=== PATIENT | female | born 1995 | race Two or more races ===

== ENCOUNTER 2024-07-31 07:03 | Inpatient (IN) | payer MEDICAID ==
[2024-07-27 12:21] LABS: Urine Bacteria None Seen /hpf (None Seen)
[2024-07-27 13:14] LABS: Basophils # (auto) 0 10 ^3/uL (0-0.2); Basophils % (auto) 0.2 % (0.0-2.0); Eosinophils # (auto) 0.1 10 ^3/uL (0-0.8); Hematocrit 39.2 % (36.0-46.0); Hemoglobin 13.3 g/dL (12.2-16.2); Lymphocytes # (auto) 1.6 10 ^3/uL (0.4-5.4); Lymphocytes % (auto) 28.7 % (10.0-50.0); Mean Corpuscular Hemoglobin 29.7 pg (28.0-32.0); Mean Corpuscular Hgb Conc. 33.8 g/dL (32.0-36.0); Mean Corpuscular Volume 87.7 fL (80.0-100.0); Monocytes # (auto) 0.4 10 ^3/uL (0-1.3); Neutrophils # (auto) 3.4 10 ^3/uL (1.6-8.6); Neutrophils % (auto) 61.1 % (37.0-80.0); Nucleated Red Blood Cells % 0.1 %; Platelet Count (auto) 300 10^3/uL (140-450); Red Blood Cells 4.47 10^6/uL (4.0-5.20); White Blood Cell 5.5 10^3/uL (4.4-10.8)
[2024-07-27 13:15] LABS: Urine Blood Negative /uL (Negative); Urine Clarity Clear (Clear); Urine Color Light-Yellow (Yellow); Urine Mucus FEW (None Seen); Urine Protein, UAD Negative (Negative); Urine Specific Gravity 1.021 (1.001-1.035); Urine Urobilinogen Normal (Negative); Urine WBC 1 /hpf (0 - 5); Urine pH 5.5 (5.0-9.0)
[2024-07-27 13:27] LABS: INR 1.1 (0.9-1.15); Partial Thromboplastin Time 29.1 SEC (24.5-34.5); Prothrombin Time 11.6 sec (9.3-11.8)
[2024-07-27 13:53] LABS: Alanine Aminotransferase 21 U/L (7-40); Albumin 4.7 g/dL (3.2-4.8); Alkaline Phosphatase 57 U/L (46-116); Anion Gap 5 (5-15); BUN/Creatinine Ratio 14.1 (10.0-20.0); Blood Urea Nitrogen 13 mg/dL (9-23); Calcium 10.3 mg/dL (8.7-10.4); Carbon Dioxide 27 mmol/L (20-31); Chloride 108 mmol/L (98-107); Glucose 85 mg/dL (74-106); Potassium 4.1 mmol/L (3.5-5.1); Sodium 140 mmol/L (136-145)
[2024-07-27 13:54] LABS: Aspartate Aminotransferase 19 U/L (13-40); Total Protein 7.4 g/dL (5.7-8.2)
--- NOTE | 2024-07-27 14:12 | DVHHP2 ---
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 control: NONE Patient has a history of chronic pelvic pain. She has extremely painful menstrual cycles. She was previously diagnosed with pelvic adhesions and had a diagnostic laparoscopy in the past. She has secondary infertility, and a prior history of a pelvic infection. Pelvic US shows an 8mm endometrial cyst and an 8mm left ovarian (solid) lesion. 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[employer]) Review of Systems Constitutional: No symptom reported Ears, Nose, & Throat: No symptom reported Eyes: No symptom reported Pulmonary/Respiratory: No symptom reported Cardiovascular: No symptom reported Gastrointestinal: Abdominal Pain Genitourinary: Pain Musculoskeletal: No symptom reported Skin: No symptom reported Psychiatric: No symptom reported Endocrine: No symptom reported Hemotologic/Lymphatic: No symptom reported Physical Exam Physical Exam HEENT: NCAT Heart: Rhythm Normal Lungs: Clear Abdomen: Soft Extremities: Normal Reflexes: Normal Market Manager/Pelvic Exam: Not done Assessment and Plan Plan Assessment and Plan: 1. Chronic Pelvic Pain 2. Possible Endometriosis vs Pelvic Adhesions 3. Endometrial cyst 8mm 4. Abnormal uterine bleeding 5. Secondary Infertility Plan: The patient is consented for the following procedure: -- Pelvic exam under anesthesia, operative hysteroscopy, uterine dilation and curettage, diagnostic laparoscopy, lysis of adhesion, chromopertubation, peritoneal biopsy, fulguration of endometriosis, possible laparotomy. Informed consent: The risks, benefits, and alternatives to surgery have been thoroughly discussed with the patient. Risks of pain, scar, bleeding, injury to bowel, bladder, adjacent organs have all been discussed with patient. She understands that if endometriosis is discovered she may need subsequent therapy. No guarantee given for complete resolution of pelvic pain. Patient verbalized understanding and informed consent given Date of Service: Jul 31, 2024 Billing Provider: ADALBERTO JOHNSON DO Common Visit Codes: [id number] INP/OBS CARE (HIGH) ADALBERTO JOHNSON DO Jul 27, 2024 14:12
[~2024-07-31] VITALS: Ht 162.6 cm; Wt 77.0 kg
[2024-07-31] MEDS ORDERED: SODIUM CHLORIDE LOCK 10 ML ONE (08:09)
[2024-07-31] MEDS ORDERED: fentaNYL CITRATE 100 MCG/2 ML VL ONE (08:09)
[2024-07-31] MEDS ORDERED: LIDOCAINE 1% INJ PF 5ML AMP ONE (08:09)
[2024-07-31] MEDS ORDERED: LIDOCAINE HCL 2% TOP JELLY 5ML TOP ONE (08:09)
[2024-07-31] MEDS ORDERED: MEPERIDINE HCL (50 MG/ML) 1 ML VIAL ONE (08:09)
[2024-07-31] MEDS ORDERED: NEOSTIGMINE 1 MG/ML INJ (10mg/10ML VIAL) ONE (08:09)
[2024-07-31] MEDS ORDERED: MIDAZOLAM HCL 2MG/2ML 2ml VIAL (1mg/ml) ONE (08:09)
[2024-07-31] MEDS ORDERED: KETAMINE 50mg/ML 1ml syringe ONE (08:09)
[2024-07-31] MEDS ORDERED: PROPOFOL 10 MG/ML 20 ML IV ONE (08:10)
[2024-07-31] MEDS ORDERED: ROCURONIUM 10MG/ML 10ML VIAL IV ONE (08:10)
[2024-07-31] MEDS ORDERED: ONDANSETRON HCL 4 MG/2 ML VIAL ONE (08:10)
[2024-07-31] MEDS ORDERED: GLYCOPYRROLATE 0.2 MG/ML 1ML VIAL ONE (08:10)
[2024-07-31] MEDS ORDERED: HYDROmorphone HCL 2 MG/ML VL/or syr IV PRN ×2 (09:00→13:15)
[2024-07-31] MEDS: METHYLENE BLUE 0.5% 5MG/ML 10ml AMP IV ONE ×2 (10:06→13:21)
[2024-07-31 11:08] VITALS: PULSE 92; RESP 20; O2SAT 92
[2024-07-31] MEDS: HYDROmorphone HCL 2 MG/ML VL/or syr IV PRN (11:20)
[2024-07-31] MEDS: KETOROLAC TROMETH 30 MG/ML 1ML VIAL IV ONE (11:28)
[2024-07-31] MEDS: MORPHINE SULFATE INJ 2 MG/ml SYRG IV PRN (11:40)
[2024-07-31] MEDS: ACETAMINOPHEN IV 1000 MG/100ML (10MG/ML) IV ONE (11:45)
--- NOTE | 2024-07-31 11:47 | DVHOP ---
DATE OF SURGERY: 07/31/2024 PREOPERATIVE DIAGNOSES: * Chronic pelvic pain. * Excessive menstrual bleeding. * Suspected endometrial cyst seen on pelvic ultrasound. * History of adhesions and possible endometriosis. * Secondary infertility. FINAL DIAGNOSES: * Chronic pelvic pain. * Excessive menstrual bleeding. * Suspected endometrial cyst seen on pelvic ultrasound, not seen. * Pelvic adhesions (RLQ) and possible endometriosis (posterior cul de sac). * Secondary infertility, suspected blocked right fallopian tube and dilated left fallopian tube (patent) PROCEDURE PERFORMED: * Pelvic exam under anesthesia. * Operative hysteroscopy, uterine dilatation and curettage (D&C). * Operative laparoscopy with lysis of adhesions and chromopertubation * Peritoneal biopsy (posterior cul de sac) INDICATION FOR PROCEDURE: The patient is a 28-year-old nulliparous female. She has had secondary infertility and chronic pelvic pain. Her pain is worse in the right lower quadrant. Previously, she has had laparoscopy done by an outside physician that stated she had pelvic adhesions and possible endometriosis. The patient has not had relief of her symptoms and was consented for repeat operation. On pelvic ultrasound, an endometrial cyst was suggested. Also, the patient has a history of abnormal uterine bleeding. Therefore, she was consented for the above procedures. The risks, benefits, and alternatives to surgery were discussed with the patient and informed consent was obtained. DESCRIPTION OF FINDINGS: A normal sized uterus. No endometrial lesions or cysts seen on diagnostic hysteroscopy. Bilateral tubal ostia seen on hysteroscopy. A sharp uterine curettage performed. On laparoscopy, the patient had a less than 1 cm lesion in the posterior cul-de-sac that was biopsied and sent to pathology, suspicious for endometriosis. She did not have extensive or obvious pelvic or peritoneal endometriosis. In the right lower quadrant, the bowel and the appendix were adherent to the abdominal wall. Sharp and blunt adhesiolysis was performed to free the appendix and the bowel from the right lower quadrant. An intraoperative consultation with the general surgeon, Dr. Fuentes, was obtained who stated the appendix appeared normal and did not need to be removed. Small bowel and abdominal organs otherwise unremarkable. On chromopertubation, the right fallopian tube appeared to be blocked. There was no efflux of dye from the fimbriated end. The left fallopian tube showed normal efflux of dye. However, the left tube appeared dilated. There was no clubbing of the fallopian tubes. Fimbriated ends were within normal limits bilaterally. TECHNICAL PROCEDURE: After informed consent was obtained, the patient was taken to the operating room where she underwent smooth induction with general anesthesia. She was placed in dorsal lithotomy position in [place] stirrups. The vagina, perineum, abdomen were thoroughly prepped and the patient sterilely draped in usual fashion. A pelvic exam was then performed under anesthesia with the above-noted findings. A weighted speculum was placed in the patient's vagina. The anterior lip of the cervix was grasped with a single-tooth tenaculum. Uterine cavity sounded to 7 cm. The cervix was gently dilated with Garcia dilators to accommodate a HUMI uterine manipulator. The manipulator was placed transcervically and into the uterine cavity. The balloon was inflated. Next, a transurethral Trevizo was placed in usual fashion. All instrumentation was removed from the patient's vagina. Attention was then placed to the patient's abdomen where a 5 mm incision was made at the base of the umbilicus. The umbilical stump was elevated with clamps and the Veress needle introduced into the peritoneal cavity in usual fashion. Intraperitoneal placement was confirmed with the hanging water drop test. Carbon dioxide gas was infused to desired pneumoperitoneum. Next, a 5 mm Optiview trocar was inserted through the umbilical port. All layers of the abdomen were visualized upon entry. Intraperitoneal placement was confirmed directly with the laparoscope. Survey of the abdomen and pelvis revealed the above-noted findings. An additional 5 mm port was placed to the left of midline under direct visualization. Next, a systematic examination of the pelvic and abdominal organs was performed with the above-noted findings. I proceeded to perform a chromopertubation by instilling diluted methylene blue dye through the HUMI manipulator. The blue dye could be seen coming out of the left fallopian tube only. The distal ampullary end of the left fallopian tube appeared to be dilated. The fimbriated ends were normal on both fallopian tubes. The right fallopian tube did not show any efflux of dye despite multiple attempts to irrigate the tubes with dye. Next, we saw an implant that looked like endometriosis in the posterior cul-de-sac. Photos of the lesion were obtained. I obtained a biopsy with cold scissors and the tissue sample was retrieved and submitted to pathology. There was no bleeding at the site of biopsy. Next, there were adhesions in the right lower quadrant as described above. An intraoperative consultation with general surgeon, Dr. Fuentes, was obtained whose opinion was not to remove the appendix as it appeared normal and non-inflamed. Using the LigaSure device sharp and blunt adhesiolysis was performed to free the appendix and the small bowel from its adhesions to the right lower abdominal wall. The abdomen and pelvis were thoroughly irrigated with saline. Hemostasis was confirmed. Carbon dioxide gas was released and the trocars were removed under direct visualization. The skin incisions each were injected with 10 mL of 1% lidocaine with epinephrine and then the skin incisions closed in subcuticular fashion using 3-0 Monocryl followed by a thin layer of Dermabond. Next, attention was then placed to the vagina where a weighted speculum was introduced. The anterior lip of the cervix was grasped with a single-tooth tenaculum. The cervix was already dilated. A sharp uterine curettage was performed and the endometrial curettings was placed on Telfa pad and submitted to pathology. Next, using a 0-degree hysteroscope, I entered the uterine cavity and performed an evaluation of the endometrial cavity. Saline was used as the distention medium. Bilateral tubal ostia were successfully seen. There were no lesions, no polyps or endometrial cysts noted within the endometrial cavity. Photos of the endometrial cavity and endocervix were obtained. The hysteroscope was removed under direct visualization. No bleeding from the cervix or uterus was noted. At this point, all instrumentations were removed from the patient's vagina. The trevizo catheter was removed. The patient was taken out of lithotomy position, awakened, and taken to recovery room in stable condition. INTRAOPERATIVE COMPLICATIONS: None. ESTIMATED BLOOD LOSS: Less than 15 mL. POSTOPERATIVE CONDITION: Stable. SPECIMENS: * Endometrial curettings. * Posterior cul-de-sac peritoneal biopsy. MEDICATIONS: The patient received 2 grams of Ancef prior to skin incision. DO YAHAIRA Taylor/YUDY TID: [id number] RECEIPT: [id number] MTDD
[2024-07-31] MEDS: MEPERIDINE HCL (25 MG/ML) 1ML VIAL ONE ×2 (12:07→13:22)
[2024-07-31] MEDS: MEPERIDINE HCL (25 MG/ML) 1ML VIAL IV ONE (12:30)
[2024-07-31] MEDS: METOCLOPRAMIDE HCL 5MG/ml INJ 2ml VIAL IV ONE (12:33)
[2024-07-31 13:00] VITALS: PULSE 87; RESP 20; O2SAT 96
[2024-07-31] MEDS ORDERED: HYDROcodone-ACET 7.5/325MG TAB PO PRN (13:15)
[2024-07-31] MEDS: LIDOCAINE W/ EPINEPHRINE 1% 20ML VIAL ONE (13:21)
[2024-07-31] MEDS: ceFAZolin 2 GM/D5W100ml 100 ML IV ONE (13:21)
--- NOTE | 2024-07-31 13:23 | DVHPN2 ---
Subjective Progress Notes Subjective Post op NOTE 28y s/p Operative laparoscopy with RLQ lysis of adhesions, s/p peritoneal biopsy of lesion suspicious for endometriosis (lesion in the posterior cul de sac) s/p Chormopertubation with blocked right tube and dilated left fallopian tube (secondary infertility) s/p hysteroscopy and D&C for history of AUB Patient is in 7/10 pain in PACU despite multiple IV pain meds administered. NO N/V or fever. Pain is constant in RLQ with no radiation. s/p CT scan shows air bubbles in RLQ, normal appearing appendix, some fluid (likely secondary to acute surgery) Objective PHYSICAL EXAM Physical Exam: Gen: No acute distress now Abd: NON DISTENDED, RLQ tender, but no rebound , no masses, soft Ext: Soft, NT, neg Shree sign Vital Signs and I&O Vital Signs Date Time Temp Pulse Resp B/P (MAP) Pulse Ox O2 Delivery O2 Flow Rate FiO2 07/31/24 14:50 97.8 94 18 103/61 (75) 96 97.8 07/31/24 13:00 Nasal Cannula 2.0 07/31/24 13:00 96 Lab results Laboratory Tests Test 07/27/24 12:16 Range/Units White Blood Count 5.5 4.4-10.8 10^3/uL Red Blood Count 4.47 4.0-5.20 10^6/uL Hemoglobin 13.3 12.2-16.2 g/dL Hematocrit 39.2 36.0-46.0 % Mean Corpuscular Volume 87.7 80.0-100.0 fL Mean Corpuscular Hemoglobin 29.7 28.0-32.0 pg Mean Corpuscular Hemoglobin Concent 33.8 32.0-36.0 g/dL Red Cell Distribution Width 14.0 11.8-14.3 % Platelet Count 300 140-450 10^3/uL Mean Platelet Volume 8.0 6.9-10.8 fL Neutrophils (%) (Auto) 61.1 37.0-80.0 % Lymphocytes (%) (Auto) 28.7 10.0-50.0 % Monocytes (%) (Auto) 8.0 0.0-12.0 % Eosinophils (%) (Auto) 2.0 0.0-7.0 % Basophils (%) (Auto) 0.2 0.0-2.0 % Neutrophils # (Auto) 3.4 1.6-8.6 10 ^3/uL Lymphocytes # (Auto) 1.6 0.4-5.4 10 ^3/uL Monocytes # (Auto) 0.4 0-1.3 10 ^3/uL Eosinophils # (Auto) 0.1 0-0.8 10 ^3/uL Basophils # (Auto) 0 0-0.2 10 ^3/uL Nucleated Red Blood Cells 0.1 % Prothrombin Time 11.6 9.3-11.8 sec Prothrombin Time INR 1.10 0.9-1.15 Activated Partial Thromboplast Time 29.1 24.5-34.5 SEC Urine Color Light-yellow Yellow Urine Clarity Clear Clear Urine pH 5.5 5.0-9.0 Urine Specific [place] 1.021 1.001-1.035 Urine Protein Negative Negative Urine Ketones Negative Negative Urine Blood Negative Negative /uL Urine Nitrite Negative Negative Urine Bilirubin Negative Negative Urine Urobilinogen Normal Negative mg/dL Urine Leukocyte Esterase Negative Negative /uL Urine RBC <1 0 - 4 /hpf Urine WBC 1 0 - 5 /hpf Urine Squamous Epithelial Cells Few <5 /hpf Urine Bacteria None seen None Seen /hpf Urine Mucus Few None Seen Urine Glucose Normal Normal mg/dL Urine Test Negative Negative Sodium Level 140 136-145 mmol/L Potassium Level 4.1 3.5-5.1 mmol/L Chloride Level 108 H 98-107 mmol/L Carbon Dioxide Level 27 20-31 mmol/L Anion Gap 5 5-15 Blood Urea Nitrogen 13 9-23 mg/dL Creatinine 0.92 0.550-1.02 mg/dL Glomerular Filtration Rate Calc 88 >90 mL/min BUN/Creatinine Ratio 14.1 10.0-20.0 Serum Glucose 85 74-106 mg/dL Calcium Level 10.3 8.7-10.4 mg/dL Total Bilirubin 1.0 0.2-1.0 mg/dL Aspartate Amino Transferase (AST) 19 13-40 U/L Alanine Aminotransferase (ALT) 21 7-40 U/L Alkaline Phosphatase 57 46-116 U/L Total Protein 7.4 5.7-8.2 g/dL Albumin 4.7 3.2-4.8 g/dL Beta HCG, Quantitative 0.5 L 1.5-4.2 mIU/mL Assessment and Plan ASSESSMENT AND PLAN Assessment and Plan POD#0 s/p Laparoscopy and lysis of adhesions for pelvic pain s/p Hysteroscopy D&C and Chromopertubation Acute post op pain Plan Admit for post op observation, acute pain mgmt. Keep NPO CT Scan Abd/Pelvis w/ IV contrast performed, findings noted and discussed with General Surgeon Dr. Fuentes. Will order gastrografin study with small bowel follow through. IV pain meds PRN. Plan reviewed with patient and family. My orders: Orders - ADALBERTO JOHNSON DO Admit (07/31/24 13:09) Complete Blood Count (08/01/24 04:00) Comprehensive Metabolic Panel (08/01/24 04:00) Ondansetron Hcl (Zofran) (07/31/24 13:15) Ibuprofen Tablet (Motrin Tablet) (07/31/24 13:15) Hydrocodone-Acet 7.5/325mg Tab ([place] 7. (07/31/24 13:15) Hydromorphone Injection (Dilaudid Inject (07/31/24 13:15) Incentive Spirometry Q 1hr (07/31/24 13:12) D5w/Lactated Ringer... W/Potassium Chlor (07/31/24 13:15) Ct Ab Pel With Iv Con Only (07/31/24 13:12) Small Bowel Series-W Gastrogra (07/31/24 15:43) Plan discussed with: Patient Date of Service: Jul 31, 2024 Billing Provider: ADALBERTO JOHNSON DO Common Visit Codes: [id number] INP/OBS CARE (MOD) ADALBERTO JOHNSON DO Jul 31, 2024 13:23
[2024-07-31] MEDS ORDERED: IOHEXOL 300 MG/ML 100ML BOTTLE IJ ONE (13:51)
--- NOTE | 2024-07-31 14:46 | DVH ---
Exam: CT CT AB PEL WITH IV CON ONLY History: acute post op pain in RLQ eval appendix and fallopian tubes. COMPARISON: None Technique: Multidetector spiral CT of the abdomen and pelvis was performed from lung bases to pubic symphysis. Intravenous contrast was administered during this examination. Portal venous imaging was obtained. Axial, coronal and sagittal multiplanar reformats were performed by the technologist on a separate workstation. Radiation Dose : Abdomen/Pelvis: CTDIvol 12 mGy, DLP 618.13 mGy*cm. CONTRAST: Type of contrast: Omni 300 Contrast injected: 100 mL Findings: Lung Bases: Atelectasis in the lung bases. Liver: The liver is normal in size. No focal lesions. Normal hepatic vascular enhancement. Gallbladder and biliary Tree: Unremarkable Spleen: Unremarkable Pancreas: The pancreas is normal in appearance without focal lesions or abnormal enhancement. Adrenal Glands: Unremarkable Kidneys: No hydronephrosis. Subcentimeter left renal cyst. Bladder: Unremarkable Bowel: The stomach is grossly normal in appearance. Small bowel and colon are normal in caliber and d istribution. Appendix is nondilated and demonstrates intraluminal air. However there is free fluid i n the right lower quadrant with a few associated air bubbles.. Ascites: Small amount of free fluid in the right lower quadrant with a few associated air bubbles. Lymphadenopathy: No mesenteric, retroperitoneal or periportal lymphadenopathy. Abdominal wall and Mesentery: Unremarkable. Vasculature: The visualized abdominal aorta is normal in size and caliber. Abdominal and pelvic vess els demonstrate normal enhancement. Pelvic Organs: Unremarkable Musculoskeletal: No aggressive focal bony lesions, acute fractures or dislocation. IMPRESSION: 1. Free fluid with small air bubbles in the right lower quadrant. Appendix is identified and appears relatively normal. However given free fluid and air bubbles suspect ruptured acute appendicitis. Rec ommend clinical correlation and continued follow-up. Fluid could be aspirated for diagnostic purposes . Radiation optimization: All CT scans at this facility use at least one of these dose optimization delfina hniques: Automated exposure control mA and/or kV adjustment per patient size (includes targeted exams where dose is matched to clinical indication) or iterative reconstruction. HS:Y
[2024-07-31 14:50] VITALS: BP 103/61; PULSE 94; RESP 18; TEMP 97.8; O2SAT 96
[2024-07-31] MEDS: POTASSIUM CHLORIDE 20 MEQ in D5W/LACTATED RINGERS 1,000 ML IV SCH (15:17)
[2024-07-31] MEDS: ONDANSETRON HCL 4 MG/2 ML VIAL IV PRN (15:24)
[2024-07-31 15:36] VITALS: PULSE 94; RESP 18; O2SAT 96
[2024-07-31] MEDS ORDERED: GASTROGRAFIN 120 ML SOL ONE (15:58)
[2024-07-31 20:00] VITALS: PULSE 71; RESP 18; O2SAT 97
[2024-07-31 21:00] VITALS: BP 114/67; PULSE 71; RESP 18; TEMP 98.6; O2SAT 97
--- NOTE | 2024-07-31 21:03 | DVH ---
Procedure: XY SMALL BOWEL SERIES-W GASTROGRA Reason for study/Clinical History: rule out perforated appendix Comparison Study: None available at time of dictation. Technique: Single contrast small bowel series performed. FINDINGS/IMPRESSION: Initial encoding machine operator view of the abdomen and pelvis appears demonstrates no acute process. Contrast in the stomach and in the colon right lower quadrant. There is also contrast noted in the ki dneys, proximal ureters, and bladder. Appendix not visualized. Small-bowel follow-through does not ex clude perforated appendix.
[2024-08-01] VITALS (7 sets, daily range): BP systolic 99–121; BP diastolic 51–75; PULSE 68–98; RESP 17–20; TEMP 36.9; O2SAT 95–100
--- NOTE | 2024-08-01 01:36 | DVHPN2 ---
Subjective Progress Notes Subjective POD#1 s/p operative laparoscopy, lysis of adhesions (RLQ) S: Patient continues to have pain in RLQ, emesis x 2. NO fever Imaging studies suspicious for ruptured appendicitis Serial abdominal exams have not improved Objective PHYSICAL EXAM Physical Exam: Resting comfortably Abd: Non distended, + Rovsing's sign, tender in RLQ , no masses Ext: soft, NT Vital Signs and I&O Vital Signs Date Time Temp Pulse Resp B/P (MAP) Pulse Ox O2 Delivery O2 Flow Rate FiO2 07/31/24 15:36 94 18 96 Room Air* 0 21 07/31/24 14:50 97.8 103/61 (75) 97.8 Intake and Output 08/01/24 07:00 Intake Total 600 ml Output Total 400 ml Balance 200 ml Intake Oral 300 ml IV Total 300 ml Output Urine Total 400 ml # Voids 3 Lab results Laboratory Tests Test 07/27/24 12:16 Range/Units White Blood Count 5.5 4.4-10.8 10^3/uL Red Blood Count 4.47 4.0-5.20 10^6/uL Hemoglobin 13.3 12.2-16.2 g/dL Hematocrit 39.2 36.0-46.0 % Mean Corpuscular Volume 87.7 80.0-100.0 fL Mean Corpuscular Hemoglobin 29.7 28.0-32.0 pg Mean Corpuscular Hemoglobin Concent 33.8 32.0-36.0 g/dL Red Cell Distribution Width 14.0 11.8-14.3 % Platelet Count 300 140-450 10^3/uL Mean Platelet Volume 8.0 6.9-10.8 fL Neutrophils (%) (Auto) 61.1 37.0-80.0 % Lymphocytes (%) (Auto) 28.7 10.0-50.0 % Monocytes (%) (Auto) 8.0 0.0-12.0 % Eosinophils (%) (Auto) 2.0 0.0-7.0 % Basophils (%) (Auto) 0.2 0.0-2.0 % Neutrophils # (Auto) 3.4 1.6-8.6 10 ^3/uL Lymphocytes # (Auto) 1.6 0.4-5.4 10 ^3/uL Monocytes # (Auto) 0.4 0-1.3 10 ^3/uL Eosinophils # (Auto) 0.1 0-0.8 10 ^3/uL Basophils # (Auto) 0 0-0.2 10 ^3/uL Nucleated Red Blood Cells 0.1 % Prothrombin Time 11.6 9.3-11.8 sec Prothrombin Time INR 1.10 0.9-1.15 Activated Partial Thromboplast Time 29.1 24.5-34.5 SEC Urine Color Light-yellow Yellow Urine Clarity Clear Clear Urine pH 5.5 5.0-9.0 Urine Specific [place] 1.021 1.001-1.035 Urine Protein Negative Negative Urine Ketones Negative Negative Urine Blood Negative Negative /uL Urine Nitrite Negative Negative Urine Bilirubin Negative Negative Urine Urobilinogen Normal Negative mg/dL Urine Leukocyte Esterase Negative Negative /uL Urine RBC <1 0 - 4 /hpf Urine WBC 1 0 - 5 /hpf Urine Squamous Epithelial Cells Few <5 /hpf Urine Bacteria None seen None Seen /hpf Urine Mucus Few None Seen Urine Glucose Normal Normal mg/dL Urine Test Negative Negative Sodium Level 140 136-145 mmol/L Potassium Level 4.1 3.5-5.1 mmol/L Chloride Level 108 H 98-107 mmol/L Carbon Dioxide Level 27 20-31 mmol/L Anion Gap 5 5-15 Blood Urea Nitrogen 13 9-23 mg/dL Creatinine 0.92 0.550-1.02 mg/dL Glomerular Filtration Rate Calc 88 >90 mL/min BUN/Creatinine Ratio 14.1 10.0-20.0 Serum Glucose 85 74-106 mg/dL Calcium Level 10.3 8.7-10.4 mg/dL Total Bilirubin 1.0 0.2-1.0 mg/dL Aspartate Amino Transferase (AST) 19 13-40 U/L Alanine Aminotransferase (ALT) 21 7-40 U/L Alkaline Phosphatase 57 46-116 U/L Total Protein 7.4 5.7-8.2 g/dL Albumin 4.7 3.2-4.8 g/dL Beta HCG, Quantitative 0.5 L 1.5-4.2 mIU/mL Assessment and Plan ASSESSMENT AND PLAN Assessment and Plan POD#1 s/p laparoscopy Persistent RLQ pain, imaging suspicious for appendicitis Plan: STAT General Surgery consult obtained. I spoke with Dr. Haddad and agrees to evaluate patient IV antibiotics ordered Continue NPO My orders: Orders - ADALBERTO JOHNSON DO Admit (07/31/24 13:09) Complete Blood Count (08/01/24 04:00) Comprehensive Metabolic Panel (08/01/24 04:00) Ondansetron Hcl (Zofran) (07/31/24 13:15) Ibuprofen Tablet (Motrin Tablet) (07/31/24 13:15) Hydrocodone-Acet 7.5/325mg Tab ([place] 7. (07/31/24 13:15) Hydromorphone Injection (Dilaudid Inject (07/31/24 13:15) Incentive Spirometry Q 1hr (07/31/24 13:12) D5w/Lactated Ringer... W/Potassium Chlor (07/31/24 13:15) Ct Ab Pel With Iv Con Only (07/31/24 13:12) Small Bowel Series-W Gastrogra (07/31/24 17:44) Kub Abdomen Single View (08/01/24 05:00) Ceftriaxone 2gm/50ml D5w (Rocephin 2gm/5 (08/01/24 10:00) Metronidazole 500mg/100ml (Flagyl 500mg/ (08/01/24 06:00) * Surgical Consult (08/01/24 ) Plan discussed with: Patient, Other (RN, General Surgery Dr. Haddad) Date of Service: Aug 01, 2024 Billing Provider: ADALBERTO JOHNSON DO Common Visit Codes: [id number] INP/OBS CARE(MOD) ADALBERTO JOHNSON DO Aug 01, 2024 01:36
[2024-08-01 01:58] LABS: Basophils # (auto) 0 10 ^3/uL (0-0.2); Basophils % (auto) 0.1 % (0.0-2.0); Eosinophils # (auto) 0 10 ^3/uL (0-0.8); Hematocrit 35.5 % (36.0-46.0); Hemoglobin 12.3 g/dL (12.2-16.2); Lymphocytes # (auto) 0.7 10 ^3/uL (0.4-5.4); Lymphocytes % (auto) 8.1 % (10.0-50.0); Mean Corpuscular Hemoglobin 30.1 pg (28.0-32.0); Mean Corpuscular Hgb Conc. 34.8 g/dL (32.0-36.0); Mean Corpuscular Volume 86.7 fL (80.0-100.0); Monocytes # (auto) 0.4 10 ^3/uL (0-1.3); Monocytes % (auto) 4.4 % (0.0-12.0); Neutrophils # (auto) 7.9 10 ^3/uL (1.6-8.6); Neutrophils % (auto) 87.4 % (37.0-80.0); Platelet Count (auto) 308 10^3/uL (140-450); Red Blood Cells 4.09 10^6/uL (4.0-5.20); Red Cell Distribution Width 14.1 % (11.8-14.3)
[2024-08-01 02:14] LABS: Alanine Aminotransferase 14 U/L (7-40); Albumin 4.4 g/dL (3.2-4.8); Alkaline Phosphatase 51 U/L (46-116); Anion Gap 8 (5-15); Aspartate Aminotransferase 12 U/L (13-40); BUN/Creatinine Ratio 11.9 (10.0-20.0); Blood Urea Nitrogen 8 mg/dL (9-23); Calcium 9.8 mg/dL (8.7-10.4); Carbon Dioxide 24 mmol/L (20-31); Chloride 109 mmol/L (98-107); Glucose 109 mg/dL (74-106); Potassium 3.9 mmol/L (3.5-5.1); Sodium 141 mmol/L (136-145)
[2024-08-01 02:15] LABS: Bilirubin, Total 0.9 mg/dL (0.2-1.0); Total Protein 6.7 g/dL (5.7-8.2)
[2024-08-01] MEDS: metroNIDAZOLE 500MG/100ML 100 ML IV SCH (02:33)
[2024-08-01] MEDS ORDERED: cefTRIAXone 1GM/50ML D5W 100 ML IV ONE (03:15)
[2024-08-01] MEDS: cefTRIAXone 2GM/50ML D5W 50 ML IV ONE (04:14)
[2024-08-01] MEDS ORDERED: metroNIDAZOLE 500MG/100ML 100 ML IV SCH (06:00)
--- NOTE | 2024-08-01 06:33 | DVH ---
Exam: XY KUB ABDOMEN SINGLE VIEW Indication: F/U SMALL BOWEL Comparison: None Technique: 1 radiographic views of the abdomen. Findings: Enteric contrast in the colon. Nonobstructive bowel gas pattern noted. There is no definite evidence for pneumoperitoneum. No abnormal calcifications noted. Impression: Enteric contrast is present in the colon.
[2024-08-01] MEDS: IBUPROFEN 600 MG TAB PO PRN (09:50)
[2024-08-01] MEDS ORDERED: cefTRIAXone 2GM/50ML D5W 50 ML IV SCH ×2 (10:00→21:00)
[2024-08-01] MEDS ORDERED: MEPERIDINE HCL (25 MG/ML) 1ML VIAL IV ONE (10:00)
--- NOTE | 2024-08-01 12:06 | DVHDS2 ---
Physician Discharge Progress N Final Diagnosis: 1. Chronic pelvic pain 2. Possible endometriosis 3. Secondary infertility, possible unilateral fallopian tube blockage 4. RLQ pain, adhesions 5. Dysfunction uterine bleeding s/p D&C Operations or Procedures: Operations or Procedures 1. Hysteroscopy 2. Dilation and curettage 3. Operative laparoscopy 4. Peritoneal biopsy, suspected endometriosis lesion 5. Lysis of adhesions (RLQ bowel/appendix adhesions to abdominal wall) 6. Chromopertubation Consultations: Consultations General Surgeon Dr. Haddad - Consultation for possible appendicitis or perforated appendix post surgery, increased RLQ pain post surgery Commentary: Commentary General Surgeon and I both recommend patient stay 1 more day for observation and IV antibiotics Patient declined further hospital stay General surgeon offered laparoscopic appendectomy, patient declined Condition on Discharge: Guarded Disposition: Home Discharge Instructions: Diet: Regular Activity: Light activity Follow Up/Referral: 2 days w/ Dr. Johnson between 8-9am in OFFICE Return to ER [facility] if fever, peristent N/V or severe RLQ pain not relieved with analgesics. Medications: [place] 5mg, Zofran 4mg, Ibuprofen 800mg Follow Up Care: Discharge Statement: "Patient was advised to return to the ER or call 911 if any headaches, dizziness, shortness of breath, chest pain, abdominal pain, bleeding, fevers, or worsening of medical condition. Patient was counseled about treatment plan, medications, possible side effects, patientverbalized understanding. All questions were answered to the best of my ability. This discharge took greater then 30 minutes in planning, reviewing documentation, counseling the patient, and discussing with other team members." ADALBERTO JOHNSON DO Aug 01, 2024 12:06
[2024-08-01] MEDS ORDERED: HYDR-4902 PO (12:08)
[2024-08-01] MEDS ORDERED: IBUP-1456 PO (12:08)
[2024-08-01] MEDS ORDERED: ONDA-155 PO (12:08)
--- NOTE | 2024-08-01 13:00 | DVHINCON2 ---
Date of service: Aug 01, 2024 History of Present Illness 28-year-old female with a history of chronic right lower quadrant abdominal pain with nausea status post previous laparoscopy last year which was unremarkable now admitted secondary to another diagnostic laparoscopy with peritoneal biopsy by Dr. Harris of all the yesterday. During the operation it was noted that her appendix was adhering to the peritoneal wall and minimal dissection was performed to free this up. Dr. Pringle was also consulted intraoperatively and he stated that the appendix appeared normal and did not need to be removed. Patient denies any fevers or chills. Past Medical History Chronic right lower quadrant abdominal pain. Questionable history of IBS Past Surgical History Diagnostic laparoscopy last year and one yesterday. Family History: Patient reports no known family medical history. Family History Noncontributory Social History No alcohol, tobacco, IV drug use Allergies: Coded Allergies: Wheat (Verified Allergy, Mild, ITCHYNESS, 07/31/24) ONLY HAPPENS WHEN OVER EATS Uncoded Allergies: SESAME SEEDS (Allergy, Mild, ITCHYNESS, 07/31/24) Home Meds Active Scripts Ondansetron HCl (Ondansetron) 4 Mg Tab, 4 MG PO Q6HPRN PRN for 5 Days, #20 TAB Prov:ADALBERTO JOHNSON DO 08/01/24 Ibuprofen (Ibuprofen) 800 Mg Tab, 1 TAB PO TID, #30 TAB Prov:ADALBERTO JOHNSON DO 08/01/24 Hydrocodone-Acetaminophen (Hydrocodone Bitartrate/AC 5-325 mg) 1 Tab Tab, 1 TAB PO Q6HPRN PRN for 5 Days, #20 TAB Prov:ADALBERTO JOHNSON DO 08/01/24 Current Medications Current Medications Medications (Trade) Dose Ordered Sig/Deisy Route PRN Reason Start Time Stop Time Status Last Admin Ondansetron HCl (Zofran) 4 mg Q6HPRN PRN IV NAUSEA / VOMITING 07/31/24 13:15 08/01/24 09:49 Ibuprofen (Motrin Tablet) 600 mg Q6HP PRN PO MODERATE PAIN (4-6 PAIN SCALE) 07/31/24 13:15 08/01/24 09:50 Acetaminophen/ Hydrocodone Bitart ([place] 7.5/325MG Tab) 1 tab Q4HP PRN PO SEVERE PAIN (7-10 PAIN SCALE) 07/31/24 13:15 Hydromorphone HCl (Dilaudid Injection) 1 mg Q2HPRN PRN IV SEVERE (BREAKTHROUGH) PAIN 07/31/24 13:15 Potassium Chloride 20 meq/ Dextrose/Lactated Ringer's 1,010 ml @ 100 mls/hr Q10H6M IV 07/31/24 13:15 08/01/24 09:34 Ceftriaxone Sodium/Dextrose 50 ml @ 50 mls/hr DAILY IV 08/01/24 10:00 08/01/24 01:38 DC Metronidazole 100 ml @ 100 mls/hr Q8HR IV 08/01/24 06:00 08/01/24 01:38 DC Ceftriaxone Sodium/Dextrose 50 ml @ 50 mls/hr DAILY@2100 IV 08/01/24 21:00 Metronidazole 100 ml @ 100 mls/hr Q8H IV 08/01/24 02:00 08/01/24 09:33 Vital Signs Vital Signs Date Time Temp Pulse Resp B/P (MAP) Pulse Ox O2 Delivery O2 Flow Rate FiO2 08/01/24 09:00 97.7 72 17 112/59 (76) 95 97.7 08/01/24 08:00 Room Air* 0 21 Physical Exam GEN: Age-appropriate female in no acute distress. Alert. HEENT: Normocephalic atraumatic. Moist mucous membranes. Anicteric sclerae. CV: RRR Respiratory: CTAB ABD: Well healing incision perform her recent surgery. Abdomen is soft but there is minimal diffuse tenderness to palpation especially in the right lower quadrant with minimal guarding. Nondistended. CT of the abdomen and pelvis: There was free fluid and small air bubbles in the right lower quadrant probably from her recent surgery. Appendix is identified and appears normal. Labs/Diagnostic Data Labs Test 08/01/24 01:53 07/27/24 12:16 Range/Units White Blood Count 9.0 # 4.4-10.8 10^3/uL Red Blood Count 4.09 4.0-5.20 10^6/uL Hemoglobin 12.3 12.2-16.2 g/dL Hematocrit 35.5 L 36.0-46.0 % Mean Corpuscular Volume 86.7 80.0-100.0 fL Mean Corpuscular Hemoglobin 30.1 28.0-32.0 pg Mean Corpuscular Hemoglobin Concent 34.8 32.0-36.0 g/dL Red Cell Distribution Width 14.1 11.8-14.3 % Platelet Count 308 140-450 10^3/uL Mean Platelet Volume 7.6 6.9-10.8 fL Neutrophils (%) (Auto) 87.4 H 37.0-80.0 % Lymphocytes (%) (Auto) 8.1 L 10.0-50.0 % Monocytes (%) (Auto) 4.4 0.0-12.0 % Eosinophils (%) (Auto) 0.0 0.0-7.0 % Basophils (%) (Auto) 0.1 0.0-2.0 % Neutrophils # (Auto) 7.9 1.6-8.6 10 ^3/uL Lymphocytes # (Auto) 0.7 0.4-5.4 10 ^3/uL Monocytes # (Auto) 0.4 0-1.3 10 ^3/uL Eosinophils # (Auto) 0 0-0.8 10 ^3/uL Basophils # (Auto) 0 0-0.2 10 ^3/uL Nucleated Red Blood Cells 0.0 % Sodium Level 141 136-145 mmol/L Potassium Level 3.9 3.5-5.1 mmol/L Chloride Level 109 H 98-107 mmol/L Carbon Dioxide Level 24 20-31 mmol/L Anion Gap 8 5-15 Blood Urea Nitrogen 8 L 9-23 mg/dL Creatinine 0.67 0.550-1.02 mg/dL Glomerular Filtration Rate Calc 124 >90 mL/min BUN/Creatinine Ratio 11.9 10.0-20.0 Serum Glucose 109 H 74-106 mg/dL Calcium Level 9.8 8.7-10.4 mg/dL Total Bilirubin 0.9 0.2-1.0 mg/dL Aspartate Amino Transferase (AST) 12 L 13-40 U/L Alanine Aminotransferase (ALT) 14 7-40 U/L Alkaline Phosphatase 51 46-116 U/L Total Protein 6.7 5.7-8.2 g/dL Albumin 4.4 3.2-4.8 g/dL Prothrombin Time 11.6 9.3-11.8 sec Prothrombin Time INR 1.10 0.9-1.15 Activated Partial Thromboplast Time 29.1 24.5-34.5 SEC Urine Color Light-yellow Yellow Urine Clarity Clear Clear Urine pH 5.5 5.0-9.0 Urine Specific [place] 1.021 1.001-1.035 Urine Protein Negative Negative Urine Ketones Negative Negative Urine Blood Negative Negative /uL Urine Nitrite Negative Negative Urine Bilirubin Negative Negative Urine Urobilinogen Normal Negative mg/dL Urine Leukocyte Esterase Negative Negative /uL Urine RBC <1 0 - 4 /hpf Urine WBC 1 0 - 5 /hpf Urine Squamous Epithelial Cells Few <5 /hpf Urine Bacteria None seen None Seen /hpf Urine Mucus Few None Seen Urine Glucose Normal Normal mg/dL Urine Test Negative Negative Beta HCG, Quantitative 0.5 L 1.5-4.2 mIU/mL Assessment 1. Right lower quadrant abdominal pain of unclear etiology. Appendicitis is extremely unlikely. Plan/Recommendation 1. No acute indication for surgical intervention at this time. I did strongly recommend the patient to have an outpatient elective colonoscopy. Discussed with Dr. Johnson. Plan discussed with: Patient LAURIE DOZIER MD Aug 01, 2024 13:00
== END 2024-08-01 14:40 | disposition home or self-care (01) | DRG 517 ==
LOC: SUR 07:03 → OVERFLOW 13:09 → CENTRAL 14:36
PROVIDERS: ADMIT Obstetrics & Gynecology; ATTEND Obstetrics & Gynecology
PROC: 0UBF4ZX Excision of Cul-de-sac, Percutaneous Endoscopic Approach, Diagnostic (ICD-10-PCS; 2024-07-31)
PROC: 0UDB8ZZ Extraction of Endometrium, Via Natural or Artificial Opening Endoscopic (ICD-10-PCS; principal; 2024-07-31 09:23)
DX: N92.0 Excessive and frequent menstruation with regular cycle (principal); R71.0 Precipitous drop in hematocrit; K66.0 Peritoneal adhesions (postprocedural) (postinfection); G89.18 Other acute postprocedural pain; N85.8 Other specified noninflammatory disorders of uterus; G89.29 Other chronic pain; N73.6 Female pelvic peritoneal adhesions (postinfective); N97.9 Female infertility, unspecified
CPT/HCPCS: 36415; 74018; 74177; 74250; 80053; 81001; 81025; 84702; 85025; 85610; 85730; 86850; 86900; 86901; G0378; J1885; J2250; J2405; J2704; J3490

== ENCOUNTER 2024-11-05 10:11 | Emergency (ER) | payer MEDICAID ==
[~2024-11-05] VITALS: Ht 154.9 cm; Wt 72.8 kg
[~2024-11-05 10:11] MED LIST: HYDR-4902 PO; IBUP-1456 PO; ONDA-155 PO
[2024-11-05] MEDS: MORPHINE SULFATE 4 MG/ML SYR/VIAL IV ONE (10:58)
[2024-11-05] MEDS: SODIUM CHLORIDE 0.9% 1,000 ML IVB ONE (10:58)
[2024-11-05] MEDS: ONDANSETRON HCL 4 MG/2 ML VIAL IV ONE (10:58)
[2024-11-05 11:00] VITALS: PULSE 91; RESP 16; O2SAT 96
--- NOTE | 2024-11-05 11:09 | ED.PDOC ---
GI ASSESSMENT HPI Comments 28-year-old female who comes in with chief complaint of right lower quadrant abdominal pain. The patient states that she has been having this pain off and on for the past four months. She was diagnosed with a stone in her appendix and has been dealing with the pain. The patient states that she saw Dr. Pringle who is her surgeon and she is scheduled to have surgery sometime in November. The pain seemed to worsened last night so she came to the emergency department's for evaluation. There has been nausea, vomiting and diarrhea and she states that the pain is an 8/10. There has been no fever at this time. The patient was able to ambulate into the emergency department's without difficulty. Chief Complaint: Abdominal Pain Time Seen by MD: 10:14 Reviewed Notes: Nurses Notes, Medications, Allergies (Allergies listed above) Allergies: Coded Allergies: Wheat (Verified Allergy, Mild, ITCHYNESS, 07/31/24) ONLY HAPPENS WHEN OVER EATS Uncoded Allergies: SESAME SEEDS (Allergy, Mild, ITCHYNESS, 07/31/24) Home Meds Active Scripts Ondansetron HCl (Ondansetron) 4 Mg Tab, 4 MG PO Q6HPRN PRN for 5 Days, #20 TAB Prov:ADALBERTO JOHNSON DO 08/01/24 Ibuprofen (Ibuprofen) 800 Mg Tab, 1 TAB PO TID, #30 TAB Prov:ADALBERTO JOHNSON DO 08/01/24 Hydrocodone-Acetaminophen (Hydrocodone Bitartrate/AC 5-325 mg) 1 Tab Tab, 1 TAB PO Q6HPRN PRN for 5 Days, #20 TAB Prov:ADALBERTO JOHNSON DO 08/01/24 Information Source: Patient Mode of Arrival: Ambulatory Timing: Weeks Duration: Intermittent Prehospital treatment: None Quality: Sharp, Stabbing Vomitus: Bilious Stool: Watery Severity: Moderate Recent: None Recent Hx of: None Pain Location: RLQ Modifying Factors: Nothing Associated sign and symptoms: Nausea, Vomiting, Diarrhea, Abdominal Pain Past Medical History Past Medical History (Other): Endometriosis Surgical History (Other): Laparoscopic surgery [employer] History: No Pertinent [employer] History Family History Family History: Reviewed,noncontributory to illness Social History Smoker: Non-Smoker Alcohol: Denies ETOH Use Drugs: Denies Drug Use Lives In: Home Constitutional: reports: fever; denies: chills, diaphoresis, fatigue, malaise, sweats, weakness, others EENTM: denies: blurred vision, double vision, ear bleeding, ear discharge, ear drainage, ear pain, ear ringing, eye pain, eye redness, hearing loss, mouth pain, mouth swelling, nasal discharge, nose bleeding, nose congestion, nose pain, photophobia, tearing, throat pain, throat swelling, voice changes, others Respiratory: denies: cough, hemoptysis, orthopnea, SOB at rest, shortness of breath, SOB with excertion, stridor, wheezing, others Cardiovascular: denies: chest pain, dizzy spells, diaphoresis, Dyspnea on exertion, edema, irregular heart beat, left arm pain, lightheadedness, palpitations, PND, syncope, others Gastrointestinal: reports: abdominal pain, diarrhea, nausea, poor appetite, vomiting; denies: abdomen distended, blood streaked bowels, constipated, dysphagia, difficulty swallowing, hematemesis, melena, poor fluid intake, rectal bleeding, rectal pain, others Genitourinary: denies: abnormal vagina bleeding, burning, dyspareunia, dysuria, flank pain, frequency, hematuria, incontinence, pain, , vagina discharge, urgency, others Neurological: denies: dizziness, fainting, headache, left sided numbness, left sided weakness, numbness, paresthesia, pre-existing deficit, right sided numbness, right sided weakness, seizure, speech problems, tingling, tremors, weakness, others Musculoskeletal: denies: back pain, gout, joint pain, joint swelling, muscle pain, muscle stiffness, neck pain, others Integumetry: denies: bruises, change in color, change in hair/nails, dryness, laceration, lesions, lumps, rash, wounds, others Allergic/Immunocompromised: denies: Difficulty Healing, Frequent Infections, Hives, Itching, others Hematologic/Lymphatic: denies: anemia, blood clots, easy bleeding, easy bruising, swollen glands, others Endocrine: denies: excessive hunger, excessive sweating, excessive thirst, excessive urination, flushing, intolerance to cold, intolerance to heat, unexplained weight gain, unexplained weight loss, others Psychiatric: denies: anxiety, bipolar disorder, depression, hopeless, panic disorder, schizophrenia, sleepless, suicidal, others Physical Exam General Appearance: Mild Distress HEENT: Normal ENT Inspection, Pharynx Normal, TMs Normal Neck: Full Range of Motion, Non-Tender, Normal, Normal Inspection Respiratory: Chest Non-Tender, Lungs Clear, No Accessory Muscle Use, No Re spiratory Distress, Normal Breath Sounds Cardiovascular: No Edema, No JVD, No Murmur, No Gallop, Normal Peripheral Pulses, Regular Rate/Rhythm Breast Exam: Deferred Gastrointestinal: No Organomegaly, No Pulsatile Mass, Normal Bowel Sounds, RLQ, Soft, Tenderness Genitalia: Deferred Pelvic: Deferred Rectal: Deferred Extremities: No calf tenderness, Normal capillary refill, Normal inspection, Normal range of motion, Non-tender, No pedal edema Musculoskeletal : Apperance: Normal Neurologic: Alert, operating cost clerk II-XII nml as Tested, No Motor Deficits, Normal Affect, Normal Mood, No Sensory Deficits Cerebellar Function: Normal Reflexes: Normal Skin: Dry, Normal Color, Warm Lymphatic: No Adenopathy Was a procedure done? Was a procedure done?: No GI differential Dx Differential Diagnosis: Appendicitis, Gastritis/PUD, Gastroenteritis, Pancreatitis, UTI, Electrolyte Imbalance X-Ray, Labs, Meds, VS Vital Signs Date Time Temp Pulse Resp B/P (MAP) Pulse Ox O2 Delivery O2 Flow Rate FiO2 11/05/24 12:21 98.2 89 16 121/76 (91) 99 98.2 11/05/24 12:19 89 16 121/76 11/05/24 11:00 98.0 91 16 151/85 (107) 96 98.0 11/05/24 11:00 91 16 96 Room Air* 0 21 11/05/24 10:58 91 16 151/85 11/05/24 10:44 97.8 90 16 123/79 (94) 98 Lab Test 11/05/24 11:11 Range/Units White Blood Count 6.6 4.4-10.8 10^3/uL Red Blood Count 4.64 4.0-5.20 10^6/uL Hemoglobin 13.5 12.2-16.2 g/dL Hematocrit 39.7 36.0-46.0 % Mean Corpuscular Volume 85.7 80.0-100.0 fL Mean Corpuscular Hemoglobin 29.1 28.0-32.0 pg Mean Corpuscular Hemoglobin Concent 33.9 32.0-36.0 g/dL Red Cell Distribution Width 14.1 11.8-14.3 % Platelet Count 313 140-450 10^3/uL Mean Platelet Volume 7.7 6.9-10.8 fL Neutrophils (%) (Auto) 70.9 37.0-80.0 % Lymphocytes (%) (Auto) 21.5 10.0-50.0 % Monocytes (%) (Auto) 6.3 0.0-12.0 % Eosinophils (%) (Auto) 1.2 0.0-7.0 % Basophils (%) (Auto) 0.1 0.0-2.0 % Neutrophils # (Auto) 4.7 1.6-8.6 10 ^3/uL Lymphocytes # (Auto) 1.4 0.4-5.4 10 ^3/uL Monocytes # (Auto) 0.4 0-1.3 10 ^3/uL Eosinophils # (Auto) 0.1 0-0.8 10 ^3/uL Basophils # (Auto) 0 0-0.2 10 ^3/uL Nucleated Red Blood Cells 0.0 % Prothrombin Time 10.8 9.3-11.8 sec Prothrombin Time INR 1.02 0.9-1.15 Activated Partial Thromboplast Time 27.6 24.5-34.5 SEC Sodium Level 141 136-145 mmol/L Potassium Level 3.9 3.5-5.1 mmol/L Chloride Level 107 98-107 mmol/L Carbon Dioxide Level 24 20-31 mmol/L Anion Gap 10 5-15 Blood Urea Nitrogen 10 9-23 mg/dL Creatinine 0.81 0.550-1.02 mg/dL Glomerular Filtration Rate Calc 103 >90 mL/min BUN/Creatinine Ratio 12.3 10.0-20.0 Serum Glucose 85 74-106 mg/dL Calcium Level 10.2 8.7-10.4 mg/dL Current Medications Medications (Trade) Dose Ordered Sig/Deisy Route Start Time Stop Time Status Last Admin Ondansetron HCl (Zofran) 4 mg ONCE ONCE IV 11/05/24 10:45 11/05/24 10:46 DC 11/05/24 10:58 Sodium Chloride 1,000 ml @ 1,000 mls/hr Q1H ONCE IVB 11/05/24 10:45 11/05/24 11:44 DC 11/05/24 10:58 Morphine Sulfate 4 mg ONCE ONCE IV 11/05/24 10:45 11/05/24 10:46 DC 11/05/24 10:58 IV Hep-Lock has been established The patient was given a 1 L bolus of normal saline The patient was given morphine 4 mg IV push for the pain The patient was given Zofran 4 mg IV push for the nausea The CT scan of the abdomen and pelvis are within normal limits The patient's CBC and chemistry panel are within normal limits. At this time, the patient was being discharged we did speak with the office of Dr. Pringle and the patient will be followed up as scheduled Images Reviewed?: Images reviewed and evaluated by me Time of 1ST Reevaluation: 11:08 Reevaluation 1ST: Unchanged Patient Education/Counseling: Diagnosis, Treatment, Prognosis, Need For Follow Up Family Education/Counseling: No Family Present Departure 1 Departure Time of Disposition: 14:52 Impression: Primary Impression: Abdominal pain Qualified Codes: R10.31 - Right lower quadrant pain Disposition: 01 HOME / SELF CARE / HOMELESS Condition: Fair Discharged With: Self Critical Care Note Critical Care Time?: No Stability Stability form required: No Heart Score Heart Score: Heart Score Response (Comments) Value History N/A 0 EKG N/A 0 Age N/A 0 Risk Factors N/A 0 Troponin N/A 0 Total 0 SHONDA GONSALES MD Nov 05, 2024 11:08
[2024-11-05 11:36] LABS: Basophils # (auto) 0 10 ^3/uL (0-0.2); Basophils % (auto) 0.1 % (0.0-2.0); Eosinophils # (auto) 0.1 10 ^3/uL (0-0.8); Eosinophils % (auto) 1.2 % (0.0-7.0); Hematocrit 39.7 % (36.0-46.0); Hemoglobin 13.5 g/dL (12.2-16.2); Lymphocytes # (auto) 1.4 10 ^3/uL (0.4-5.4); Lymphocytes % (auto) 21.5 % (10.0-50.0); Mean Corpuscular Hemoglobin 29.1 pg (28.0-32.0); Mean Corpuscular Hgb Conc. 33.9 g/dL (32.0-36.0); Mean Corpuscular Volume 85.7 fL (80.0-100.0); Monocytes # (auto) 0.4 10 ^3/uL (0-1.3); Monocytes % (auto) 6.3 % (0.0-12.0); Neutrophils # (auto) 4.7 10 ^3/uL (1.6-8.6); Neutrophils % (auto) 70.9 % (37.0-80.0); Platelet Count (auto) 313 10^3/uL (140-450); Red Blood Cells 4.64 10^6/uL (4.0-5.20); Red Cell Distribution Width 14.1 % (11.8-14.3); White Blood Cell 6.6 10^3/uL (4.4-10.8)
[2024-11-05 11:51] LABS: INR 1.02 (0.9-1.15); Partial Thromboplastin Time 27.6 SEC (24.5-34.5); Prothrombin Time 10.8 sec (9.3-11.8)
[2024-11-05 12:08] LABS: Potassium 3.9 mmol/L (3.5-5.1); Sodium 141 mmol/L (136-145)
[2024-11-05 12:09] LABS: Anion Gap 10 (5-15); Calcium 10.2 mg/dL (8.7-10.4); Carbon Dioxide 24 mmol/L (20-31)
[2024-11-05 12:14] LABS: BUN/Creatinine Ratio 12.3 (10.0-20.0); Blood Urea Nitrogen 10 mg/dL (9-23); Glucose 85 mg/dL (74-106)
[2024-11-05 12:19] LABS: Chloride 107 mmol/L (98-107)
--- NOTE | 2024-11-05 14:15 | DVH ---
Exam: CT CT AB PEL WITH IV CON ONLY History: pain COMPARISON: CT CT AB PEL WITH IV CON ONLY on DOS: 07/31/24 Technique: Multidetector spiral CT of the abdomen and pelvis was performed from lung bases to pubic symphysis. Intravenous contrast was administered during this examination. Portal venous imaging was obtained. Axial, coronal and sagittal multiplanar reformats were performed by the technologist on a separate workstation. Radiation Dose : Abdomen/Pelvis: CTDIvol 8 mGy, DLP 435 mGy*cm. CONTRAST: Type of contrast: Omni 300 Contrast injected: 80 mL Findings: Lung Bases: No acute or significant lung base finding. Normal heart size. No pleural or pericardial effusion. Liver: The liver is normal in size. No focal lesions. Normal hepatic vascular enhancement. Gallbladder and biliary Tree: Unremarkable Spleen: Unremarkable Pancreas: The pancreas is normal in appearance without focal lesions or abnormal enhancement. Adrenal Glands: Unremarkable Kidneys: Subcentimeter left renal cyst. No hydronephrosis. Bladder: Unremarkable Bowel: The stomach is grossly normal in appearance. Small bowel and colon are normal in caliber and d istribution. Normal appendix is visualized in the right lower quadrant without findings of appendicit is. Ascites: Absent Lymphadenopathy: No mesenteric, retroperitoneal or periportal lymphadenopathy. Abdominal wall and Mesentery: Unremarkable. Vasculature: The visualized abdominal aorta is normal in size and caliber. Abdominal and pelvic vess els demonstrate normal enhancement. Pelvic Organs: Unremarkable Musculoskeletal: No aggressive focal bony lesions, acute fractures or dislocation. IMPRESSION: 1. No acute abdominal or pelvic finding. Radiation optimization: All CT scans at this facility use at least one of these dose optimization delfina hniques: Automated exposure control mA and/or kV adjustment per patient size (includes targeted exams where dose is matched to clinical indication) or iterative reconstruction. HS:Y
[2024-11-05] MEDS: IOHEXOL 300 MG/ML 100ML BOTTLE IJ ONE (14:36)
[2024-11-05 15:10] VITALS: BP 114/68; PULSE 83; RESP 17; TEMP 98.2; O2SAT 96
== END 2024-11-05 15:15 | disposition home or self-care (01) ==
LOC: ER 10:11
DX: R10.31 Right lower quadrant pain (principal); Z98.890 Other specified postprocedural states; Z91.018 Allergy to other foods
CPT/HCPCS: 36415; 74177; 80048; 85025; 85610; 85730; 96361; 96374; 96375; 99285; J2270; J2405; J7030; Q9967

== ENCOUNTER 2024-11-25 06:10 | Inpatient (IN) | payer MEDICAID ==
[2024-11-16 11:54] LABS: Basophils # (auto) 0 10 ^3/uL (0-0.2); Basophils % (auto) 0.2 % (0.0-2.0); Eosinophils # (auto) 0.1 10 ^3/uL (0-0.8); Eosinophils % (auto) 1.8 % (0.0-7.0); Hematocrit 41.6 % (36.0-46.0); Hemoglobin 13.4 g/dL (12.2-16.2); Lymphocytes # (auto) 1.7 10 ^3/uL (0.4-5.4); Lymphocytes % (auto) 26.9 % (10.0-50.0); Mean Corpuscular Hgb Conc. 32.3 g/dL (32.0-36.0); Mean Corpuscular Volume 86.6 fL (80.0-100.0); Monocytes # (auto) 0.4 10 ^3/uL (0-1.3); Monocytes % (auto) 7.1 % (0.0-12.0); Nucleated Red Blood Cells % 0.1 %; Platelet Count (auto) 306 10^3/uL (140-450); Red Blood Cells 4.81 10^6/uL (4.0-5.20); Red Cell Distribution Width 14.4 % (11.8-14.3); White Blood Cell 6.2 10^3/uL (4.4-10.8)
[2024-11-16 12:18] LABS: Alanine Aminotransferase 16 U/L (7-40); Alkaline Phosphatase 67 U/L (46-116); Anion Gap 9 (5-15); Calcium 9.9 mg/dL (8.7-10.4); Carbon Dioxide 26 mmol/L (20-31); Chloride 106 mmol/L (98-107); Sodium 141 mmol/L (136-145)
[2024-11-16 12:20] LABS: Glucose 89 mg/dL (74-106); INR 1.03 (0.9-1.15); Partial Thromboplastin Time 28.8 SEC (24.5-34.5); Prothrombin Time 10.9 sec (9.3-11.8)
[2024-11-16 12:21] LABS: BUN/Creatinine Ratio 14.9 (10.0-20.0); Blood Urea Nitrogen 13 mg/dL (9-23); Total Protein 7.4 g/dL (5.7-8.2)
[2024-11-16 12:22] LABS: Aspartate Aminotransferase 17 U/L (13-40)
[2024-11-16 12:23] LABS: Bilirubin, Total 0.9 mg/dL (0.2-1.0)
[2024-11-16 12:24] LABS: Albumin 4.9 g/dL (3.2-4.8)
[2024-11-16 12:40] LABS: Urine Bacteria FEW /hpf (None Seen); Urine Blood Negative /uL (Negative); Urine Clarity Turbid (Clear); Urine Color Light-Yellow (Yellow); Urine Mucus FEW (None Seen); Urine Protein, UAD Negative (Negative); Urine Specific Gravity 1.022 (1.001-1.035); Urine Squamous Epithelial Cell MOD /hpf (<5); Urine Urobilinogen Normal (Negative); Urine WBC 4 /HPF (0-5); Urine pH 5.5 (5.0-9.0)
--- NOTE | 2024-11-16 14:54 | DVHHP ---
ADMIT DATE: 11/20/2024 SUGGESTED DATE OF PROCEDURE: 11/20/2024 CHIEF COMPLAINT: Chronic pelvic pain. HISTORY OF PRESENT ILLNESS: This is a 28-year-old nulliparous female. The patient has had chronic pelvic pain for several years. She previously underwent diagnostic laparoscopy that confirmed presence of pelvic endometriosis. The patient is currently not on any hormonal therapy. She has, however, continued to have right-sided moderate to severe pelvic pain. She consulted with a general surgeon who did not feel that an appendectomy was indicated. She also consulted with a back office medical assistant who did not feel that tuboplasty procedures were indicated for treatment of her infertility due to bilaterally blocked fallopian tubes. The patient underwent hysterosalpingogram that showed bilateral fallopian tubes are blocked. On her previous laparoscopy, the left fallopian tube was dilated to chromopertubation testing, but no hydrosalpinx was present, and the right fallopian tube was completely blocked. Therefore, she is requesting a right salpingectomy. She understands the risks, benefits and alternatives to the surgery. PAST MEDICAL HISTORY: Negative. PAST SURGICAL HISTORY: Hysteroscopy, laparoscopy. MEDICATIONS: None. ALLERGIES: No known drug allergies. FAMILY HISTORY: Noncontributory. SOCIAL HISTORY: The patient is single. She denies tobacco, alcohol or illicit drug use. REVIEW OF SYSTEMS: Fourteen-point review of systems is negative as otherwise stated in the history of present illness. PHYSICAL EXAMINATION: GENERAL: Alert, appears her stated age, in no acute distress. HEENT: Normocephalic, atraumatic. EOMI. NECK: Supple, with no masses or palpable thyromegaly. LUNGS AND HEART: Lung and heart sounds are within normal limits. ABDOMEN: Soft. No masses, no rebound. She is tender in the right lower quadrant without any acute peritoneal signs. EXTREMITIES: Without cyanosis or edema. PELVIC: Deferred at the present time. ASSESSMENT: * Chronic pelvic pain localized to the right lower quadrant. 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 * Pelvic endometriosis * Infertility PLAN: The patient will be admitted for outpatient laparoscopic surgery with right total salpingectomy. We will not remove the left fallopian tube even though on hysterosalpingogram it appeared also blocked. The patient desires to pursue infertility treatment after this surgery. She understands that the appendix will not be removed at the recommendation of her general surgeon. No guarantees given that her pelvic pain will be resolved with the salpingectomy. She understands that if pelvic pain persists that she will need to seek higher level of care and seek second opinion for further treatment. Risks of the surgery including pain, scar, bleeding, infection, injury to bowel, bladder, adjacent organs all discussed with the patient. Informed consent has been obtained. DO YAHAIRA Taylor/LASHAUN TID: [id number] RECEIPT: [id number] MTDD
[2024-11-23 12:19] LABS: Basophils # (auto) 0 10 ^3/uL (0-0.2); Basophils % (auto) 0.2 % (0.0-2.0); Eosinophils # (auto) 0.1 10 ^3/uL (0-0.8); Eosinophils % (auto) 1.2 % (0.0-7.0); Hematocrit 40.3 % (36.0-46.0); Hemoglobin 13.6 g/dL (12.2-16.2); Lymphocytes # (auto) 1.8 10 ^3/uL (0.4-5.4); Lymphocytes % (auto) 29.4 % (10.0-50.0); Mean Corpuscular Hemoglobin 28.9 pg (28.0-32.0); Mean Corpuscular Hgb Conc. 33.7 g/dL (32.0-36.0); Mean Corpuscular Volume 85.8 fL (80.0-100.0); Monocytes # (auto) 0.5 10 ^3/uL (0-1.3); Monocytes % (auto) 8.2 % (0.0-12.0); Neutrophils # (auto) 3.8 10 ^3/uL (1.6-8.6); Platelet Count (auto) 305 10^3/uL (140-450); Red Cell Distribution Width 14.6 % (11.8-14.3); Urine Bacteria FEW /hpf (None Seen); Urine Blood Negative /uL (Negative); Urine Clarity Clear (Clear); Urine Color Light-Yellow (Yellow); Urine Protein, UAD Negative (Negative); Urine Specific Gravity 1.011 (1.001-1.035); Urine Squamous Epithelial Cell FEW /hpf (<5); Urine Urobilinogen Normal (Negative); Urine WBC 1 /HPF (0-5); Urine pH 6.5 (5.0-9.0); White Blood Cell 6.2 10^3/uL (4.4-10.8)
[2024-11-23 12:34] LABS: INR 1.03 (0.9-1.15); Partial Thromboplastin Time 29.8 SEC (24.5-34.5); Prothrombin Time 10.9 sec (9.3-11.8)
[2024-11-23 13:11] LABS: Alanine Aminotransferase 16 U/L (7-40); Albumin 4.9 g/dL (3.2-4.8); Alkaline Phosphatase 59 U/L (46-116); Anion Gap 7 (5-15); Aspartate Aminotransferase 18 U/L (13-40); BUN/Creatinine Ratio 8.5 (10.0-20.0); Bilirubin, Total 0.7 mg/dL (0.2-1.0); Blood Urea Nitrogen 7 mg/dL (9-23); Calcium 10.1 mg/dL (8.7-10.4); Carbon Dioxide 25 mmol/L (20-31); Chloride 106 mmol/L (98-107); Glucose 87 mg/dL (74-106); Potassium 4.8 mmol/L (3.5-5.1); Sodium 138 mmol/L (136-145); Total Protein 7.5 g/dL (5.7-8.2)
[~2024-11-25] VITALS: Ht 162.6 cm; Wt 76.3 kg
[2024-11-25] VITALS (7 sets, daily range): BP systolic 101–124; BP diastolic 54–68; PULSE 20–86; RESP 12–20; TEMP 97.6–98.5; O2SAT 92–100
[2024-11-25] MEDS ORDERED: SUGAMMADEX 200mg/2ml Vial (100MG/ML) IV ONE (06:11)
[2024-11-25] MEDS ORDERED: KETOROLAC TROMETH 30 MG/ML 1ML VIAL ONE (06:11)
[2024-11-25] MEDS ORDERED: GLYCOPYRROLATE 0.2 MG/ML 1ML VIAL ONE (06:11)
[2024-11-25] MEDS ORDERED: ROCURONIUM 10MG/ML 10ML VIAL IV ONE (06:11)
[2024-11-25] MEDS ORDERED: ONDANSETRON HCL 4 MG/2 ML VIAL ONE (06:11)
[2024-11-25] MEDS ORDERED: LIDOCAINE 2% (LOCAL ANESTH.) PF 5ml SDV ONE ×2 (06:11→07:36)
[2024-11-25] MEDS ORDERED: DexAMETHasone SOD PHOS 10MG/1ML VIAL INJ ONE (06:11)
[2024-11-25] MEDS ORDERED: PROPOFOL 10 MG/ML 20 ML IV ONE (06:11)
[2024-11-25] MEDS: BUPIVACAINE 0.5% P/F INJ 10 ML VIAL ONE (06:12)
[2024-11-25] MEDS ORDERED: fentaNYL CITRATE 100 MCG/2 ML VL ONE (06:13)
[2024-11-25] MEDS ORDERED: KETAMINE 50mg/ML 1ml syringe ONE (06:13)
[2024-11-25] MEDS ORDERED: ACETAMINOPHEN IV 1000 MG/100ML (10MG/ML) IV ONE (06:45)
--- NOTE | 2024-11-25 07:35 | DVHPN2 ---
Visit Coding OBGYN Date of Service: Nov 25, 2024 Billing Provider: ADALBERTO JOHNSON DO ASSURANCE MANAGER INSURANCE Common Visit Codes: PROCEDURE ONLY ASSURANCE MANAGER INSURANCE Procedure Codes: [id number]:W/REM ADNEXAL STRUCT (Right total salpingectomy) ADALBERTO JOHNSON DO Nov 25, 2024 07:35
[2024-11-25] MEDS ORDERED: HYDR1TAB97 PO (07:36)
[2024-11-25] MEDS ORDERED: KETOROLAC TROMETH 30 MG/ML 1ML VIAL IV PRN (08:45)
[2024-11-25] MEDS ORDERED: FLUMAZENIL 0.1 MG/ML INJ 10ML MDV IV PRN (09:15)
[2024-11-25] MEDS ORDERED: fentaNYL CITRATE 100 MCG/2 ML VL IV PRN (09:15)
[2024-11-25] MEDS ORDERED: oxyCODONE HCL 5MG TAB PO PRN (09:15)
[2024-11-25] MEDS ORDERED: NALOXONE HCL 0.4 MG/ML VIAL IV PRN (09:15)
[2024-11-25] MEDS ORDERED: hydrALAZINE HCL 20 MG/ML VL IV PRN (09:15)
[2024-11-25] MEDS ORDERED: ePHEDrine SULFATE 50 MG/ML AMP IV PRN (09:15)
--- NOTE | 2024-11-25 09:18 | DVHOP ---
DATE OF SURGERY: 11/25/2024 PREOPERATIVE DIAGNOSES: 1. Chronic pelvic pain. 2. History of endometriosis. 3. Blocked right fallopian tube. POSTOPERATIVE DIAGNOSES: 1. Chronic pelvic pain. 2. History of endometriosis. 3. Blocked right fallopian tube. 4. Chronically inflamed appendix. PROCEDURES PERFORMED: Operative laparoscopic right total salpingectomy and appendectomy. SURGEON: Papi Lucero DO GENERAL CONTRACTOR: Shalom Pierre NP HEAD BUYER TOBACCO: Umang Fuentes MD, general surgeon who removed the appendix. DESCRIPTION OF FINDINGS: 1. A normal sized uterus. The left fallopian tube and ovary appeared normal without any dilation or hydrosalpinx. The right fallopian tube and ovary similarly appeared grossly normal, however, this was known to be blocked by prior chromopertubation and hysterosalpingogram. 2. The appendix was adherent to the right pelvic sidewall. She had a chronically inflamed and indurated appendix. Intraoperative consultation was obtained with Dr. Umang Fuentes and the appendix was removed. No gross evidence of malignancy. Abdomen and pelvis otherwise normal. TECHNICAL PROCEDURE: After informed consent was obtained, the patient was taken to the operating room where she underwent smooth induction with general anesthesia. She was [facility] The vagina, perineum abdomen were thoroughly prepped and the patient sterilely draped in the usual fashion. A pelvic exam was then performed under anesthesia with the above noted findings. A weighted speculum was placed in the patient's vagina. The anterior lip of the cervix was grasped with a single tooth tenaculum. Uterine cavity sounded to 9 cm. A HUMI uterine manipulator was placed transcervically and the balloon inflated. All instrumentation was then removed from the patient's vagina. Attention was then placed to the abdomen where a 5 mm incision was made at the base of the umbilicus. Attempt to pass the Veress needle was unsuccessful, unable to confirm intraperitoneal placement. Therefore, a 5 mm Optiview trocar was used and direct entry approach was performed without any complication and entry into the peritoneal cavity was confirmed directly with the laparoscope. Carbon dioxide gas was infused and pneumoperitoneum was obtained. An 8 mm port was placed to the left of midline under direct visualization and a 12 mm port was placed to the right of midline under direct visualization. Survey of the abdomen and pelvis revealed the above noted findings. I manipulated the uterus with the HUMI manipulator. The butcher assistant grasped the distal end of the right fallopian tube. Using the LigaSure device, the fallopian tube was dissected across the mesosalpinx. There was no bleeding noted. It was taken proximally at the connection with the uterus. A total right salpingectomy was performed. The specimen was retrieved through the 8 mm port and submitted to pathology. Next, in the right lower quadrant, there were adhesions of the appendix and the appendix was adherent and indurated stuck to the right lower quadrant. An intraoperative consultation with Dr. Fuentes was obtained. The appendix was mobilized. The appendiceal artery was divided with the LigaSure device and Hemoclips were placed across the mesoappendix. The mesoappendix was divided. The appendix was grasped with a Angelito clamp at the distal end. Next, the NISREEN stapler was placed across the base of the appendix confluent with the cecum. The appendix was taken and placed in an EndoCatch bag and retrieved through the 12 mm port. The specimen was submitted. The abdomen and pelvis were thoroughly irrigated. There was no bleeding noted. We then proceeded to close the 12 mm port using #1 Vicryl using the Loyd-Ethel system. Good tissue approximation and closure of the fascial defect was obtained. Next, the carbon dioxide gas was released. The instruments were removed under direct visualization. The skin incisions were injected with 1% lidocaine. Approximately 15 mL of solution were used across 3 incisions. The skin incisions were closed with 3-0 Monocryl in subcuticular fashion and a thin layer of Dermabond was placed over the incisions. The transcervical manipulator was removed. There was no bleeding from the cervix noted. The patient was taken out of lithotomy position, awakened, and taken to recovery room in stable condition. INTRAOPERATIVE COMPLICATIONS: None. ESTIMATED BLOOD LOSS: Less than 15 mL. POSTOPERATIVE CONDITION: Stable. SPECIMENS: Right fallopian tube and appendix. MEDICATIONS: The patient received 2 g of Ancef prior to skin incision. DO JOSE MARIA Taylor TID: [id number] RECEIPT: [id number]
[2024-11-25] MEDS: ONDANSETRON HCL 4 MG/2 ML VIAL IV PRN ×2 (09:19→11:15)
[2024-11-25] MEDS: HYDROmorphone HCL 2 MG/ML VL/or syr IV PRN ×2 (09:20→11:15)
[2024-11-25] MEDS: ceFAZolin 2 GM/D5W100ml 100 ML IV ONE (09:25)
[2024-11-25] MEDS: LIDOCAINE W/ EPINEPHRINE 1% 20ML VIAL ONE (09:25)
[2024-11-25] MEDS: GABAPENTIN 300 MG CAP PO ONE (09:26)
[2024-11-25] MEDS: BUPIVACAINE HCL 0.25% P/F 10 ML VIAL ONE (09:26)
[2024-11-25] MEDS: ACETAMINOPHEN 325 MG TAB PO ONE (09:26)
[2024-11-25] MEDS: CELECOXIB 100 MG CAP PO ONE (09:27)
[2024-11-25] MEDS: ACETAMINOPHEN IV 100 ML IV ONE (09:28)
[2024-11-25] MEDS: SODIUM CHLORIDE 0.9% 1,000 ML IV SCH (10:35)
--- NOTE | 2024-11-25 13:00 | DVHINCON2 ---
DATE OF CONSULTATION: 11/25/2024 INTRAOPERATIVE CONSULTATION DATE OF OPERATION: 11/25/2024 HISTORY OF PRESENT ILLNESS: Dr. Lucero summoned me to the operating room to render an opinion regarding the patient's indurated appendix after he performed a salpingectomy for chronic pelvic pain. The appendix appeared indurated, convoluted and chronically inflamed. It was grasped with a [place] forceps placed on tension. The mesoappendix was divided with metallic Hemoclips being utilized for hemostasis. The appendix was traced all the way to the confluence with the cecum at the base of the appendix. It was secured and crossclamped and divided with an Endo-NISREEN stapler equipped with vascular marin. Following division of the appendix at its base, confluence with the cecum was removed and placed into the specimen extraction bag and removed from the peritoneal cavity. Subsequently, Dr. Lucero completed his procedure, which will be dictated separately. MD PETER Sanders/LESLIE/FREDI TID: [id number] RECEIPT: [id number]
[2024-11-25] MEDS ORDERED: IBUPROFEN 800 MG TAB PO PRN (15:00)
[2024-11-25] MEDS ORDERED: HYDROcodone-ACET 7.5/325MG TAB PO PRN (15:00)
[2024-11-25] MEDS: KETOROLAC TROMETH 30 MG/ML 1ML VIAL IV PRN (15:45)
[2024-11-25 20:11] LABS: Basophils # (auto) 0 10 ^3/uL (0-0.2); Eosinophils # (auto) 0 10 ^3/uL (0-0.8); Hematocrit 37.1 % (36.0-46.0); Hemoglobin 12.3 g/dL (12.2-16.2); Lymphocytes # (auto) 0.6 10 ^3/uL (0.4-5.4); Lymphocytes % (auto) 6.9 % (10.0-50.0); Mean Corpuscular Hemoglobin 28.6 pg (28.0-32.0); Mean Corpuscular Hgb Conc. 33.1 g/dL (32.0-36.0); Mean Corpuscular Volume 86.5 fL (80.0-100.0); Monocytes # (auto) 0.2 10 ^3/uL (0-1.3); Monocytes % (auto) 2.6 % (0.0-12.0); Neutrophils # (auto) 7.2 10 ^3/uL (1.6-8.6); Neutrophils % (auto) 90.5 % (37.0-80.0); Platelet Count (auto) 295 10^3/uL (140-450); Red Blood Cells 4.29 10^6/uL (4.0-5.20); Red Cell Distribution Width 14.4 % (11.8-14.3)
[2024-11-26 00:50] VITALS: BP 97/49; PULSE 63; RESP 20; TEMP 98.9; O2SAT 95
[2024-11-26 05:06] VITALS: BP 105/56; PULSE 63; RESP 20; TEMP 98.4; O2SAT 96
--- NOTE | 2024-11-26 06:58 | DVHDS2 ---
Physician Discharge Progress N Final Diagnosis: Pelvic pain, blocked right fallopian tube, chronic appendicitis s/p laparoscopic right total salpingectomy s/p Laparoscopic appendectomy Operations or Procedures: Operations or Procedures Laparoscopic right total salpingectomy Laparoscopic appendectomy Condition on Discharge: Stable Disposition: Home Discharge Instructions: Diet: Regular Activity: Light activity Activity comment: Pelvic rest x 2 wk Follow Up/Referral: [address] Johnson Medications: eRx [place] 5mg Follow Up Care: Discharge Statement: "Patient was advised to return to the ER or call 911 if any headaches, dizziness, shortness of breath, chest pain, abdominal pain, bleeding, fevers, or worsening of medical condition. Patient was counseled about treatment plan, medications, possible side effects, patientverbalized understanding. All questions were answered to the best of my ability. This discharge took greater then 30 minutes in planning, reviewing documentation, counseling the patient, and discussing with other team members." Visit Coding OBGYN Date of Service: Nov 26, 2024 Billing Provider: ADALBERTO JOHNSON DO WIRE FRAME DIPPER Common Visit Codes: 95782-OEG/OBS DISCH DAY <30MIN ADALBERTO JOHNSON DO Nov 26, 2024 06:58
[2024-11-26 08:14] LABS: Basophils # (auto) 0 10 ^3/uL (0-0.2); Basophils % (auto) 0.1 % (0.0-2.0); Eosinophils # (auto) 0 10 ^3/uL (0-0.8); Hematocrit 33.8 % (36.0-46.0); Hemoglobin 11.8 g/dL (12.2-16.2); Lymphocytes # (auto) 1.6 10 ^3/uL (0.4-5.4); Lymphocytes % (auto) 15.1 % (10.0-50.0); Mean Corpuscular Hgb Conc. 34.9 g/dL (32.0-36.0); Mean Corpuscular Volume 85.9 fL (80.0-100.0); Monocytes # (auto) 0.8 10 ^3/uL (0-1.3); Monocytes % (auto) 7.4 % (0.0-12.0); Neutrophils # (auto) 7.9 10 ^3/uL (1.6-8.6); Neutrophils % (auto) 77.4 % (37.0-80.0); Platelet Count (auto) 278 10^3/uL (140-450); Red Blood Cells 3.93 10^6/uL (4.0-5.20); Red Cell Distribution Width 14.4 % (11.8-14.3); White Blood Cell 10.3 10^3/uL (4.4-10.8)
[2024-11-26 09:00] VITALS: BP 110/58; PULSE 68; RESP 14; TEMP 98.6; O2SAT 96
[2024-11-26 12:19] VITALS: BP 104/55; PULSE 59; RESP 17; TEMP 98.6; O2SAT 100
== END 2024-11-26 12:54 | disposition home or self-care (01) | DRG 513 ==
LOC: SUR 06:10 → OVERFLOW 08:45 → WEST WING 09:58
PROVIDERS: ADMIT Obstetrics & Gynecology; ATTEND Obstetrics & Gynecology
PROC: 0DTJ4ZZ Resection of Appendix, Percutaneous Endoscopic Approach (ICD-10-PCS; 2024-11-25)
PROC: 0UT54ZZ Resection of Right Fallopian Tube, Percutaneous Endoscopic Approach (ICD-10-PCS; principal; 2024-11-25 07:35)
DX: N97.1 Female infertility of tubal origin (principal); G89.29 Other chronic pain; N80.8 Other endometriosis; K36 Other appendicitis; K38.8 Other specified diseases of appendix; Z79.899 Other long term (current) drug therapy
CPT/HCPCS: 36415; 80053; 81001; 84702; 85025; 85610; 85730; 86850; 86900; 86901; G0378; J1100; J1885; J2003; J2405; J2704; J3490; J7060

== ENCOUNTER → 2024-11-30 | Outpatient (CLI) | payer MEDICAID ==
[~2024-11-30] MED LIST changes: -HYDR-4902 PO; +HYDR1TAB97 PO; -IBUP-1456 PO; -ONDA-155 PO
== END | disposition home or self-care (01) ==
LOC: LAB 10:53
PROVIDERS: ATTEND Obstetrics & Gynecology
DX: N39.0 Urinary tract infection, site not specified (principal)
CPT/HCPCS: 87086

== ENCOUNTER 2025-01-28 19:25 | Emergency (ER) | payer MEDICAID ==
[~2025-01-28] VITALS: Ht 162.6 cm; Wt 76.0 kg
--- NOTE | 2025-01-28 20:14 | ED.PDOC ---
TAX TECHNICIAN HPI Comments 29-year-old female came to ER for vaginal discharge. Patient is a , ap proximately 8-9 weeks , states for the past 2 days she has been having intermittent episodes of cramping right inguinal pain, suprapubic pain, lower back pains, later associated brownish vaginal discharge. Denies any vaginal bleeding. Patient states symptoms happened immediately after coitus. Chief Complaint: Vaginal discharge Time Seen by MD: 20:13 Reviewed Notes: Nurses Notes Allergies: Uncoded Allergies: lactose intolerance (Allergy, Unknown, 11/26/24) Home Meds Active Scripts Hydrocodone-Acetaminophen (Hydrocodone/Acetaminophen 5-325 mg) 1 Tab Tab, 1 TAB PO Q6HPRN PRN, #20 TAB Prov:ADALBERTO JOHNSON DO 11/25/24 Information Source: Patient Mode of Arrival: Ambulatory Timing: Days Severity: Moderate Vaginal Discharge: Other (Brownish) Vaginal Mass: None Onset Of Mass/Bleeding: Following Java Sexual Activity: Sexually Active, Last Consensual Java: Days (2) Control: None History of: Current Associated Signs and Symptoms: Vaginal Discharge, Abdominal Pain Past Medical History PAST MEDICAL HISTORY: Denies Surgical History: Appendectomy Surgical History (Other): Right salpingectomy TUGBOAT OPERATOR History: No Pertinent TUGBOAT OPERATOR History 1 Para 0 LMP 11/28/2024 Family History Family History: Reviewed,noncontributory to illness Social History Smoker: Non-Smoker Alcohol: Denies ETOH Use Drugs: Denies Drug Use Lives In: Home Constitutional: denies: chills, diaphoresis, fatigue, fever, malaise, sweats, weakness, others EENTM: denies: blurred vision, double vision, ear bleeding, ear discharge, ear drainage, ear pain, ear ringing, eye pain, eye redness, hearing loss, mouth pain, mouth swelling, nasal discharge, nose bleeding, nose congestion, nose pain, photophobia, tearing, throat pain, throat swelling, voice changes, others Respiratory: denies: cough, hemoptysis, orthopnea, SOB at rest, shortness of breath, SOB with excertion, stridor, wheezing, others Cardiovascular: denies: chest pain, dizzy spells, diaphoresis, Dyspnea on exertion, edema, irregular heart beat, left arm pain, lightheadedness, palpitations, PND, syncope, others Gastrointestinal: reports: abdominal pain; denies: abdomen distended, blood streaked bowels, constipated, diarrhea, dysphagia, difficulty swallowing, hem atemesis, melena, nausea, poor appetite, poor fluid intake, rectal bleeding, rectal pain, vomiting, others Genitourinary: reports: vagina discharge; denies: abnormal vagina bleeding, burning, dyspareunia, dysuria, flank pain, frequency, hematuria, incontinence, pain, , urgency, others Neurological: denies: dizziness, fainting, headache, left sided numbness, left sided weakness, numbness, paresthesia, pre-existing deficit, right sided n umbness, right sided weakness, seizure, speech problems, tingling, tremors, weakness, others Musculoskeletal: reports: back pain; denies: gout, joint pain, joint swelling, muscle pain, muscle stiffness, neck pain, others Integumetry: denies: bruises, change in color, change in hair/nails, dryness, laceration, lesions, lumps, rash, wounds, others Allergic/Immunocompromised: denies: Difficulty Healing, Frequent Infections, Hives, Itching, others Hematologic/Lymphatic: denies: anemia, blood clots, easy bleeding, easy bruising, swollen glands, others Endocrine: denies: excessive hunger, excessive sweating, excessive thirst, excessive urination, flushing, intolerance to cold, intolerance to heat, unexplained weight gain, unexplained weight loss, others Psychiatric: denies: anxiety, bipolar disorder, depression, hopeless, panic disorder, schizophrenia, sleepless, suicidal, others Physical Exam General Appearance: No Apparent Distress, Normal HEENT: Normal ENT Inspection, Pharynx Normal, TMs Normal Neck: Full Range of Motion, Non-Tender, Normal, Normal Inspection Respiratory: Chest Non-Tender, Lungs Clear, No Accessory Muscle Use, No Respiratory Distress, Normal Breath Sounds Cardiovascular: No Edema, No JVD, No Murmur, No Gallop, Normal Peripheral Pulses, Regular Rate/Rhythm Breast Exam: Deferred Gastrointestinal: No Organomegaly, Non Tender, No Pulsatile Mass, Normal Bowel Sounds, Soft Genitalia: Deferred Pelvic: Deferred Rectal: Deferred Extremities: No calf tenderness, Normal capillary refill, Normal inspection, Normal range of motion, Non-tender, No pedal edema Musculoskeletal : Apperance: Normal Neurologic: Alert, swimming pool service technician II-XII nml as Tested, No Motor Deficits, Normal Affect, Normal Mood, No Sensory Deficits Cerebellar Function: Normal Reflexes: Normal Skin: Dry, Normal Color, Warm Lymphatic: No Adenopathy Was a procedure done? Was a procedure done?: No Differential Diagnosis (TUGBOAT OPERATOR) Vaginal Bleeding: - Missed, - Threatened, UTI Vaginal Discharge: Physiologic Discharge, , UTI X-Ray, Labs, Meds, VS Vital Signs Date Time Temp Pulse Resp B/P (MAP) Pulse Ox O2 Delivery O2 Flow Rate FiO2 01/29/25 00:16 99.1 71 16 116/71 (86) 97 99.1 01/28/25 21:37 99.1 66 16 124/71 (88) 100 99.1 01/28/25 19:50 99.5 92 18 123/79 (94) 97 99.5 Lab Test 01/28/25 20:15 01/28/25 20:13 Range/Units Urine Color Light-yellow Yellow Urine Clarity Clear Clear Urine pH 5.5 5.0-9.0 Urine Specific [place] 1.009 1.001-1.035 Urine Protein Negative Negative Urine Ketones Negative Negative Urine Blood Negative Negative /uL Urine Nitrite Negative Negative Urine Bilirubin Negative Negative Urine Urobilinogen Normal Negative mg/dL Urine Leukocyte Esterase Negative Negative /uL Urine RBC <1 0 - 4 /hpf Urine Microscopic WBC < 1 0-5 /HPF Urine Squamous Epithelial Cells Few <5 /hpf Urine Bacteria None seen None Seen /hpf Urine Glucose Normal Normal mg/dL Sodium Level 139 136-145 mmol/L Potassium Level 3.5 3.5-5.1 mmol/L Chloride Level 106 98-107 mmol/L Carbon Dioxide Level 24 20-31 mmol/L Anion Gap 9 5-15 Blood Urea Nitrogen 9 9-23 mg/dL Creatinine 0.70 0.550-1.02 mg/dL Glomerular Filtration Rate Calc 121 >90 mL/min BUN/Creatinine Ratio 12.9 10.0-20.0 Serum Glucose 89 74-106 mg/dL Calcium Level 10.1 8.7-10.4 mg/dL Total Bilirubin 0.5 0.2-1.0 mg/dL Aspartate Amino Transferase (AST) 14 13-40 U/L Alanine Aminotransferase (ALT) 11 7-40 U/L Alkaline Phosphatase 49 46-116 U/L Total Protein 7.2 5.7-8.2 g/dL Albumin 4.8 3.2-4.8 g/dL Beta HCG, Quantitative > 409120.0 H 1.5-4.2 mIU/mL PROCEDURE(s): OB4US - OB ULTRASOUND COMP LESS 14WKS REASON: lower abd pain, 8 wks ORDER NUMBER(s): [id number], ACCESSION NUMBER(s): [id number] OB EVALUATION, LESS THAN 14 WEEKS CLINICAL HISTORY: lower abd pain, 8 wks COMPARISON: No recent prior studies available for comparison. TECHNIQUE: Grayscale, color-flow Doppler, and spectral Doppler ultrasound of the pelvis is performed by transabdominal technique. FINDINGS: The uterus measures approximately 10.0 x 7.4 x 8.5 cm. Intrauterine gestational sac and pole identified. Mean gestational sac diameter 4.5 cm. [place]-rump length 2.2 cm. Yolk sac is also noted. Average ultrasound age 9 weeks 3 days. Estimated due date 08/30/2025. heart rate 176 beats per minute. Small curvilinear hypoechoic structure adjacent to the gestational sac measuring approximately 2 cm in diameter. The right ovary measures 3.8 x 2.4 x 3.4 cm. The left ovary measures 2.2 by 1.5 x 2.1 cm. Both ovaries demonstrate dopplerable blood flow on spectral analysis. No free fluid identified in the cul-de-sac. IMPRESSION: Single living intrauterine gestation as above. Small subchorionic hematoma. Recommend follow-up as clinically indicated. Time of 1ST Reevaluation: 20:09 Reevaluation 1ST: Unchanged Patient Education/Counseling: Diagnosis, Treatment Family Education/Counseling: No Family Present Departure 1 Departure Time of Disposition: 22:16 Impression: Primary Impression: 9 weeks gestation of Additional Impression: Abdominal pain Disposition: 01 HOME / SELF CARE / HOMELESS Condition: Stable Discharged With: Self Critical Care Note Critical Care Time?: No Stability Stability form required: No Heart Score Heart Score: Heart Score Response (Comments) Value History N/A 0 EKG N/A 0 Age N/A 0 Risk Factors N/A 0 Troponin N/A 0 Total 0 I personally scribed for DENIS BHATTI MD ([email or web address]) on 01/28/25 at 20:14. Electron[facility] submitted [facility] Millan [facility] I personally scribed for DENIS BHATTI MD ([email or web address]) on 01/28/25 at 23:44. Electronically submitted by Gabriel Millan ([facility]). DENIS BHATTI MD January 28, 2025 20:14
[2025-01-28 20:23] LABS: Urine Bacteria None Seen /hpf (None Seen)
[2025-01-28 20:42] LABS: Urine Blood Negative /uL (Negative); Urine Clarity Clear (Clear); Urine Color Light-Yellow (Yellow); Urine Protein, UAD Negative (Negative); Urine Specific Gravity 1.009 (1.001-1.035); Urine Squamous Epithelial Cell FEW /hpf (<5); Urine Urobilinogen Normal (Negative); Urine WBC < 1 /HPF (0-5); Urine pH 5.5 (5.0-9.0)
[2025-01-28 20:45] LABS: Alanine Aminotransferase 11 U/L (7-40); Albumin 4.8 g/dL (3.2-4.8); Alkaline Phosphatase 49 U/L (46-116); Anion Gap 9 (5-15); Aspartate Aminotransferase 14 U/L (13-40); BUN/Creatinine Ratio 12.9 (10.0-20.0); Bilirubin, Total 0.5 mg/dL (0.2-1.0); Calcium 10.1 mg/dL (8.7-10.4); Carbon Dioxide 24 mmol/L (20-31); Chloride 106 mmol/L (98-107); Glucose 89 mg/dL (74-106); Sodium 139 mmol/L (136-145); Total Protein 7.2 g/dL (5.7-8.2)
[2025-01-28 20:48] LABS: Blood Urea Nitrogen 9 mg/dL (9-23); Potassium 3.5 mmol/L (3.5-5.1)
--- NOTE | 2025-01-28 23:27 | DVH ---
OB EVALUATION, LESS THAN 14 WEEKS CLINICAL HISTORY: lower abd pain, 8 wks COMPARISON: No recent prior studies available for comparison. TECHNIQUE: Grayscale, color-flow Doppler, and spectral Doppler ultrasound of the pelvis is performed by transabdominal technique. FINDINGS: The uterus measures approximately 10.0 x 7.4 x 8.5 cm. Intrauterine gestational sac and pole id entified. Mean gestational sac diameter 4.5 cm. [place]-rump length 2.2 cm. Yolk sac is also noted. Average ultrasound age 9 weeks 3 days. Estimated due date 08/30/2025. heart rate 176 beats per minute. Small curvilinear hypoechoic structure adjacent to the gestational sac measuring approximately 2 cm i n diameter. The right ovary measures 3.8 x 2.4 x 3.4 cm. The left ovary measures 2.2 by 1.5 x 2.1 cm. Both ovari es demonstrate dopplerable blood flow on spectral analysis. No free fluid identified in the cul-de-sac. IMPRESSION: Single living intrauterine gestation as above. Small subchorionic hematoma. Recommend follow-up as clinically indicated.
[2025-01-29 00:16] VITALS: BP 116/71; PULSE 71; RESP 16; TEMP 99.1; O2SAT 97
== END 2025-01-29 00:21 | disposition home or self-care (01) ==
LOC: ER 19:25
DX: O20.9 Hemorrhage in early pregnancy, unspecified (principal); O26.891 Other specified pregnancy related conditions, first trimester; R10.31 Right lower quadrant pain; M54.50 Low back pain, unspecified; Z90.49 Acquired absence of other specified parts of digestive tract; Z3A.09 9 weeks gestation of pregnancy
CPT/HCPCS: 36415; 76801; 80053; 81001; 84702

== ENCOUNTER 2025-04-16 14:42 | Emergency (ER) | payer MEDICAID ==
[~2025-04-16] VITALS: Ht 162.6 cm; Wt 76.0 kg
[2025-04-16 14:44] VITALS: BP 101/62; PULSE 59; RESP 18; TEMP 98.5; O2SAT 99
--- NOTE | 2025-04-16 15:07 | ED.PDOC ---
Yuli. trauma (HPI) HPI Comments A 29 YEAR OLD FEMALE PRESENTS TO THE ED WITH COMPLAINT OF FALL DURING . PATIENT STATES SHE IS CURRENTLY ABOUT 19 WEEKS AND ACCIDENTALLY TRIPPED DUE TO WALKING IN HEELS ON [place]. PATIENT REPORTS SHE WOULD LIKE TO MAKE SURE HER BABY IS OKAY. PATIENT NOTES SHE ONLY HAS MILD LOWER BACK PAIN AT THIS TIME, BUT WOULD STILL LIKE TO BE EVALUATED. PATIENT DENIES HEAD INJURY, NECK INJURY, LOC, VAGINAL BLEEDING/SPOTTING, FEVER, CHILLS, SHORTNESS OF BREATH, CHEST PAIN, ABDOMINAL PAIN, NAUSEA, VOMITING, HEADACHE, OR OTHER COMPLAINTS. NO OTHER SYMPTOMS OR MODIFYING FACTORS AT THIS TIME. PATIENT IS ALERT, ORIENTED X 4, AND HAS STEADY GAIT. Chief Complaint: Fall Injury Time Seen by MD: 14:45 Reviewed notes: Nurses Notes, Medications, Allergies Allergies: Uncoded Allergies: lactose intolerance (Allergy, Unknown, 11/26/24) Home Meds Active Scripts Hydrocodone-Acetaminophen (Hydrocodone/Acetaminophen 5-325 mg) 1 Tab Tab, 1 TAB PO Q6HPRN PRN, #20 TAB Prov:JOHANRAHROBYADALBERTO DO 11/25/24 Information Source: Patient Mode of Arrival: Ambulatory Severity: Moderate Timing: Days Duration: Since onset, Days Prehospital treatment: None Location: Back Location of laceration: None Mechanism: Fall Associated signs and symtoms: None Past Medical History PAST MEDICAL HISTORY: Denies Surgical History: Appendectomy PROPOSAL REP History: No Pertinent PROPOSAL REP History Family History Family History: Reviewed,noncontributory to illness Social History Smoker: Non-Smoker Alcohol: Denies ETOH Use Drugs: Denies Drug Use Lives In: Home Constitutional: denies: chills, diaphoresis, fatigue, fever, malaise, sweats, weakness, others EENTM: denies: blurred vision, double vision, ear bleeding, ear discharge, ear drainage, ear pain, ear ringing, eye pain, eye redness, hearing loss, mouth nain n, mouth swelling, nasal discharge, nose bleeding, nose congestion, nose pain, photophobia, tearing, throat pain, throat swelling, voice changes, others Respiratory: denies: cough, hemoptysis, orthopnea, SOB at rest, shortness of breath, SOB with excertion, stridor, wheezing, others Cardiovascular: denies: chest pain, dizzy spells, diaphoresis, Dyspnea on exertion, edema, irregular heart beat, left arm pain, lightheadedness, palpitations, PND, syncope, others Gastrointestinal: denies: abdomen distended, abdominal pain, blood streaked bowels, constipated, diarrhea, dysphagia, difficulty swallowing, hematemesis, melena, nausea, poor appetite, poor fluid intake, rectal bleeding, rectal pain, vomiting, others Genitourinary: reports: ; denies: abnormal vagina bleeding, burning, dyspareunia, dysuria, flank pain, frequency, hematuria, incontinence, pain, vagina discharge, urgency, others Neurological: denies: dizziness, fainting, headache, left sided numbness, left sided weakness, numbness, paresthesia, pre-existing deficit, right sided numbness, right sided weakness, seizure, speech problems, tingling, tremors, weakness, others Musculoskeletal: reports: back pain, muscle pain; denies: gout, joint pain, joint swelling, muscle stiffness, neck pain, others Integumetry: denies: bruises, change in color, change in hair/nails, dryness, laceration, lesions, lumps, rash, wounds, others Allergic/Immunocompromised: denies: Difficulty Healing, Frequent Infections, Hives, Itching, others Hematologic/Lymphatic: denies: anemia, blood clots, easy bleeding, easy bruising, swollen glands, others Endocrine: denies: excessive hunger, excessive sweating, excessive thirst, excessive urination, flushing, intolerance to cold, intolerance to heat, unexplained weight gain, unexplained weight loss, others Psychiatric: denies: anxiety, bipolar disorder, depression, hopeless, panic disorder, schizophrenia, sleepless, suicidal, others All Other Systems: Reviewed and Negative Physical Exam General Appearance: No Apparent Distress, Normal HEENT: Normal ENT Inspection, PERRL/EOMI, Pharynx Normal, TMs Normal Neck: Full Range of Motion, Non-Tender, Normal, Normal Inspection Respiratory: Chest Non-Tender, Lungs Clear, No Accessory Muscle Use, No Respiratory Distress, Normal Breath Sounds Cardiovascular: No Edema, No JVD, No Murmur, No Gallop, Normal Peripheral Pulses, Regular Rate/Rhythm Breast Exam: Deferred Gastrointestinal: No Organomegaly, Non Tender, No Pulsatile Mass, Normal Bowel Sounds, Soft Genitalia: Deferred Pelvic: Deferred Rectal: Deferred Extremities: No calf tenderness, Normal capillary refill, Normal inspection, Normal range of motion, Non-tender, No pedal edema Musculoskeletal : Location: Right Extremity Location: Back Apperance: Tenderness (AND MUSCLE SPASM ON LOWER BACK, NO BONY TENDERNESS, SWELLING AND DEFORMITY, NO CVA TENDERNESS. ) Neurologic: Alert, mat gauger II-XII nml as Tested, No Motor Deficits, Normal Affect, Normal Mood, No Sensory Deficits Cerebellar Function: Normal Reflexes: Normal Skin: Dry, Normal Color, Warm Peripheral Pulses: 2+ carotid (R), 2+ carotid (L), 2+ dorsalis pedis (R), 2+ dorsalis pedis (L) Lymphatic: No Adenopathy Was a procedure done? Was a procedure done?: No Differential Diagnosis Multiple Trauma: Contusion, Other (MUSCLE STRAIN, WELL CHECK, NORMAL ) Neck Injury: Other (2ND TRIMESTER ) X-Ray, Labs, Meds, VS Vital Signs Date Time Temp Pulse Resp B/P (MAP) Pulse Ox O2 Delivery O2 Flow Rate FiO2 04/16/25 14:44 98.5 59 18 101/62 99 98.5 OB ULTRASOUND, LIMITED CLINICAL INDICATION: RIGHT LOW BACK PAIN POST FALL, 19 WEEKS TECHNIQUE: Multiple grayscale ultrasound and M-mode images were obtained of the pelvis for evaluation of intrauterine . COMPARISON: US OB ULTRASOUND COMP LESS 14WKS on DOS: 01/28/25 FINDINGS: A single living fetus is seen in cephalic presentation. Biparietal diameter: 4.62 cm (20 weeks, 0 days) Head Circumference: 17.43 cm (20 weeks, 0 days) Abdomen Circumference: 13.84 cm (19 weeks, 2 days) Femur Length: 3.25 cm (20 weeks, 1 days) Estimated weight: 307 grams (+/- 46.16 grams). Placenta: Posterior. Amniotic fluid: Visibly normal. heart rate: 149 beats/min. Cervical length is 4.3 cm and closed. A complete anatomic survey was not performed on this exam. Mild right maternal hydronephrosis is noted. IMPRESSION: Single living intrauterine with an estimated gestational age of 19 weeks, 6 days, corresponding to an estimated date of delivery of 09/04/2025. Mild maternal right hydronephrosis. ATED BY: LISSETH LOPEZ MD DICTATED DATE/TIME: 04/16/25 155 SIGNED BY: LISSETH LOPEZ MD SIGNED DATE/TIME: 04/16/25 155 CC: X-Ray, Labs, Meds, VS Comment EXTERNAL MEDICAL RECORDS REVIEWED: [NONE] INDEPENDENT HISTORIANS: [NONE] SOCIAL DETERMINANTS OF HEALTH: [NONE] LABS ORDERED: NONE REVIEWED AND INTERPRETED RESULTS: NONE IMAGING ORDERED: US OB > 14 WKS TREATMENTS ORDERED: NONE PROCEDURES PERFORMED: NONE CRITICAL CARE TIME: NONE I HAVE DISCUSSED THE PATIENT WITH THE ATTENDING PHYSICIAN DR. LIU AND HE AGREES WITH THE PATIENT'S PLAN OF CARE AND DISPOSITION. BASED ON HISTORY OF PRESENT ILLNESS, AND PHYSICAL EXAM, PATIENT WILL BE DISCHARGED HOME. SHARED DECISION MAKING: PATIENT INSTRUCTED TO FOLLOW UP WITH PRIMARY CARE PROVIDER IN 1-2 DAYS FOR RE-EVALUATION OF SYMPTOMS. PATIENT VERBALIZES UNDERSTANDING TO RETURN TO ED FOR NEW OR WORSENING SYMPTOMS OR IF FOLLOW UP WITH PCP CANNOT BE OBTAINED. PATIENT FEELS COMFORTABLE GOING HOME AT THIS TIME. ALL QUESTIONS ADDRESSED AT TIME OF DISCHARGE. Images Reviewed?: Images reviewed and evaluated by me Time of 1ST Reevaluation: 16:00 Reevaluation 1ST: Improved Patient Education/Counseling: Diagnosis, Treatment, Need For Follow Up Family Education/Counseling: Diagnosis, Treatment, Need For Follow Up Medical Screening: No EMC Exist At This Time Departure 1 Departure Time of Disposition: 16:00 Impression: Primary Impression: Low back strain Qualified Codes: S39.012A - Strain of muscle, fascia and tendon of lower back, initial encounter Additional Impression: Normal in second trimester Disposition: 01 HOME / SELF CARE / HOMELESS Condition: Stable Additional Instructions: FOLLOW-UP WITH PCP AND PAPER CUTTER IN 1 TO 2 DAYS. RETURN TO ED FOR ANY NEW OR WORSENING SYMPTOMS. Discharged With: Self, Spouse Critical Care Note Critical Care Time?: No Stability Stability form required: No I personally scribed for SHARIF MARTINEZ ([email or web address]) on 04/16/25 at 15:07. Electronically submitted by Kb Vitale ([email or web address]). I personally scribed for SHARIF MARTINEZ ([email or web address]) on 04/16/25 at 15:39. Electronically submitted by Kb Vitale ([email or web address]). I personally scribed for SHARIF MARTINEZ ([email or web address]) on 04/16/25 at 15:58. Electronically submitted by Kb Vitale ([email or web address]). SHARIF MARTINEZ Apr 16, 2025 15:07
--- NOTE | 2025-04-16 15:54 | DVH ---
OB ULTRASOUND, LIMITED CLINICAL INDICATION: RIGHT LOW BACK PAIN POST FALL, 19 WEEKS TECHNIQUE: Multiple grayscale ultrasound and M-mode images were obtained of the pelvis for evaluation of intrauterine . COMPARISON: US OB ULTRASOUND COMP LESS 14WKS on DOS: 01/28/25 FINDINGS: A single living fetus is seen in cephalic presentation. Biparietal diameter: 4.62 cm (20 weeks, 0 days) Head Circumference: 17.43 cm (20 weeks, 0 days) Abdomen Circumference: 13.84 cm (19 weeks, 2 days) Femur Length: 3.25 cm (20 weeks, 1 days) Estimated weight: 307 grams (+/- 46.16 grams). Placenta: Posterior. Amniotic fluid: Visibly normal. heart rate: 149 beats/min. Cervical length is 4.3 cm and closed. A complete anatomic survey was not performed on this exam. Mild right maternal hydronephrosis is noted. IMPRESSION: Single living intrauterine with an estimated gestational age of 19 weeks, 6 days, corresp onding to an estimated date of delivery of 09/04/2025. Mild maternal right hydronephrosis.
== END 2025-04-16 15:57 | disposition home or self-care (01) ==
LOC: ER 14:42
DX: O9A.212 Injury, poisoning and certain other consequences of external causes complicating pregnancy, second trimester (principal); S39.012A Strain of muscle, fascia and tendon of lower back, initial encounter; Z3A.19 19 weeks gestation of pregnancy; Z90.49 Acquired absence of other specified parts of digestive tract; Z79.899 Other long term (current) drug therapy; W01.0XXA Fall on same level from slipping, tripping and stumbling without subsequent striking against object, initial encounter; Y93.01 Activity, walking, marching and hiking; Y92.89 Other specified places as the place of occurrence of the external cause; Y99.8 Other external cause status
CPT/HCPCS: 76805

== ENCOUNTER 2025-05-21 08:08 | Observation (INO) | payer MEDICAID ==
[2025-05-21] MEDS ORDERED: PREN-96 PO (08:43)
== END 2025-05-21 08:57 | disposition home or self-care (01) ==
LOC: LDRP 08:08 → UNDOADMOB 08:08 → LDRP 08:14
PROVIDERS: ADMIT Obstetrics & Gynecology; ATTEND Obstetrics & Gynecology
DX: O36.8120 Decreased fetal movements, second trimester, not applicable or unspecified (principal); Z3A.24 24 weeks gestation of pregnancy; Z98.890 Other specified postprocedural states
CPT/HCPCS: 81002; G0378

== ENCOUNTER 2025-07-23 20:01 | Observation (INO) | payer MEDICAID ==
[~2025-07-23] VITALS: Ht 162.6 cm; Wt 81.6 kg
[~2025-07-23 20:01] MED LIST changes: +PREN-96 PO
[2025-07-23] MEDS: NIFEdipine 10 MG CAP PO ONE (20:47)
--- NOTE | 2025-07-23 21:35 | DVH ---
EXAM: US OB ULTRASOUND COMP GTR 14 WKS HISTORY: No PNC records COMPARISON: US OB ULTRASOUND COMP GTR 14 WKS on DOS: 04/16/25 TECHNIQUE: Transabdominal and endovaginal real time strickland scale, color, and doppler evaluation. Permanent images are maintained in the patient record. FINDINGS: GA by previous US/LMP: 33 weeks, 4 days AROLDO by previous US/LMP: 09/06/25 US GESTATIONAL AGE: 35 weeks, 2 days US AROLDO: 08/25/25 ESTIMATED WEIGHT: 2625 g. 5 lb, 13 oz HEART RATE: 147 bpm BPD: 8.84 cm, 35 weeks 5 days, 93.8% HC: 31.4 cm, 35 weeks 4 days, 66.6% AC: 31.71 cm, 35 weeks 4 days, 95% FL: 6.62 cm, 34 weeks 1days, 53.1% HC/AC: 1 ANATOMY: Normal head, 4 chamber heart, face, spine, stomach, kidneys, cord insertion, bladder, extremities POSITION: Cephalic PLACENTA: Posterior GRADE: 1 COREY: 14.6 cm IMPRESSION: 1. Single viable gestation with normal cardiac heart rate. No placenta previa
[2025-07-23] MEDS: NIFEdipine 10 MG CAP ONE (22:05)
[2025-07-24] MEDS: NIFEdipine 10 MG CAP PO SCH (02:05)
--- NOTE | 2025-07-24 07:19 | DVHDS2 ---
Physician Discharge Progress N Final Diagnosis: Threatened labor 33.4 wk Operations or Procedures: Operations or Procedures NST and OB Ultrasound Commentary: Commentary CX length 24mm Cervical exam: Closed/THick/ Post VTX , membranes intact NST Categ 1 Contractions resolved w/ PO procardia, observed x 4 hr, no labor Condition on Discharge: Stable Disposition: Home Discharge Instructions: Diet: Regular Activity: Light activity Follow Up/Referral: Please keep any existing appointments with your OBGYN Medications: nA Follow Up Care: Discharge Statement: "Patient was advised to return to the ER or call 911 if any headaches, dizziness, shortness of breath, chest pain, abdominal pain, bleeding, fevers, or worsening of medical condition. Patient was counseled about treatment plan, medications, possible side effects, patientverbalized understanding. All questions were answered to the best of my ability. This discharge took greater then 30 minutes in planning, reviewing documentation, counseling the patient, and discussing with other team members." Visit Coding OBGYN Date of Service: Jul 24, 2025 Billing Provider: ADALBERTO JOHNSON DO PANEL LAY UP WORKER Common Visit Codes: 99915-CWZ/OBS SAME DATE (HIGH) PANEL LAY UP WORKER Procedure Codes: 33156-88- NON-STRESS TEST ADALBERTO JOHNSON DO Jul 24, 2025 07:19
== END 2025-07-24 02:00 | disposition home or self-care (01) ==
LOC: LDRP 20:01
PROVIDERS: ADMIT Obstetrics & Gynecology; ATTEND Obstetrics & Gynecology
DX: O60.03 Preterm labor without delivery, third trimester (principal); Z3A.33 33 weeks gestation of pregnancy; Z98.890 Other specified postprocedural states; Z79.899 Other long term (current) drug therapy
CPT/HCPCS: 59025; 76805; 81002; 87081; 94760; G0378

== ENCOUNTER 2025-09-03 04:16 | Observation (INO) | payer MEDICAID ==
--- NOTE | 2025-09-03 05:44 | DVH ---
LIMITED OB ULTRASOUND > 14 WKS: HISTORY: PT OF OUTSIDE FACILITY TECHNIQUE: Multiple real-time grayscale images of the gravid uterus with duplex Doppler color flow and M-mode spectral analysis. TRANSDUCER: Transabdominal COMPARISON: US OB ULTRASOUND COMP GTR 14 WKS on DOS: 07/23/25, US OB ULTRASOUND COMP GTR 14 WKS on DOS: 04/16/25, US OB ULTRASOUND COMP LESS 14WKS on DOS: 01/28/25 FINDINGS: IUP single live fetus at 39 weeks and 3 days based on composite averages of the BPD, head circumference, abdominal circumference and femur length Estimated weight 3713 grams heart rate 123 beats per minute COREY 11.3 cm Cervix is not visualized Cephalic Presentation Grade 3, posterior /fundal Placenta without previa or abruption. Limited assessment of anatomy secondary to advanced gestational age. Grossly within normal limits. IMPRESSION: IUP single live fetus at 39 weeks and 3 days AUA corresponding to an AROLDO of 09/07/2025
--- NOTE | 2025-09-03 05:54 | DVHDS2 ---
Physician Discharge Progress N Final Diagnosis: IUP at 39w4d Secondary Diagnosis: Early labor Operations or Procedures: Operations or Procedures SUBJECTIVE Genny Carter is a 29 yo with IUP at 39w4d presenting for labor check Patient states that she has been uyen every 2 minutes all night. Denies leaking fluid and denies vaginal bleeding. States positive movement. States she would like to labor as naturally as possible, without the epidural if she can PNC: good. with Jazmine EDC: 09/06/2025 Review of Systems: Neuro: No complaints Heart: No complaints Lungs: No complaints GI: No complaints : Uterine tightness/contractions Skin: No complaints Extremities: No complaints OBJECTIVE VSS FHR: Baseline: 135 Variability: Moderate Accelerations: Present Decelerations: Absent Category: 1 UCs: every 2-3 minutes Neuro: A&O x4. No apparent distress. Affect appropriate Heart: Regular rate and rhythm Lungs: Clear bilaterally GI: Gravid. No tenderness : SVE discussed and performed with consent. Cervix 1.5/80/-2, unchanged from previous exam. Skin: Dry and intact. No rashes or lesions Extremities: Cap refill WNL. ASSESSMENT 29 yo with IUP at 39w4d Early labor Category 1 Tracing GBS negative PLAN -Reviewed nonpharmacologic and pharmacologic options to manage early labor pain at home. Discussed possibility of giving medicine in hospital and discharging to allow for therapeutic rest. Patient declines and states she would like to go home at this time and does not need medication for pain -Discussed labor precautions and kick counts. Answered all patient questions and concerns. Patient verbalizes understanding. Condition on Discharge: Good Disposition: Home Discharge Instructions: Diet: Regular Activity: Light activity Medications: No change. Follow Up Care: Discharge Statement: "Patient was advised to return to the ER or call 911 if any headaches, diz ziness, shortness of breath, chest pain, abdominal pain, bleeding, fevers, or worsening of medical condition. Patient was counseled about treatment plan, medications, possible side effects, patientverbalized understanding. All questions were answered to the best of my ability. This discharge took greater then 30 minutes in planning, reviewing documentation, counseling the patient, and discussing with other team members." Visit Coding OBGYN Date of Service: Sep 03, 2025 Billing Provider: AMBROSE DAVE CNM PHY THERAPIST Common Visit Codes: [id number] INP/OBS CARE(MOD) PHY THERAPIST Procedure Codes: 47380-70- NON-STRESS TEST AMBROSE DAVE CNM Sep 03, 2025 05:54
[2025-09-03] MEDS ORDERED: LIDOCAINE HCL 2 %PF INJ 10ML AMP IJ ONE (10:47)
[2025-09-04] MEDS ORDERED: IBU600T PO ×2 (06:53)
[2025-09-04] MEDS ORDERED: DOCU-94 PO ×2 (06:53)
== END 2025-09-03 05:59 | disposition home or self-care (01) ==
LOC: LDRP 04:16
PROVIDERS: ADMIT Obstetrics & Gynecology; ATTEND Obstetrics & Gynecology
DX: O48.0 Post-term pregnancy (principal); Z3A.39 39 weeks gestation of pregnancy; Z79.899 Other long term (current) drug therapy; Z98.890 Other specified postprocedural states
CPT/HCPCS: 59025; 76805; 81002; 94760; A4649; G0378

== ENCOUNTER 2025-09-03 08:25 | Inpatient (IN) | payer MEDICAID ==
[~2025-09-03] VITALS: Ht 162.6 cm; Wt 86.6 kg
--- NOTE | 2025-09-03 08:34 | DVHHP2 ---
OB CC & HPI Date Date of Admission: Sep 03, 2025 Patient Identification: : 1 Para: 0 EDC: Sep 06, 2025 EGA: 39wks Chief Complaints: Reason for admission: active labor Admission Nurse Assessment Rev: No History of Present Complaints pt presents in labor,denies rom or vag bleeding.she has care at [facility] [place] with dr wright Past Medical History Cardiac: No pertinent Hx Pulmonary: No pertinent Hx Central Nervous System: No pertinent Hx GI: No pertinent Hx Hemotology/Oncology: No pertinent Hx Hepatobiliary: No pertinent Hx Psychiatric: No pertinent Hx Musculoskeletal: No pertinent Hx Rheumotologic: No pertinent Hx Infectious Disease: No peritnent Hx ENT: No pertinent Hx Renal/: No pertinent Hx Endocrine: No pertinent Hx Dermatology: No pertinent Hx Past Surgical History: No pertinent Hx OB History OB History Care: Limited Care Ultrasounds: Normal mid trimester US Obstetrical Complications: None Medical Complications: None Allergies: Uncoded Allergies: lactose intolerance (Allergy, Unknown, 11/26/24) Home Meds Active Scripts Hydrocodone-Acetaminophen (Hydrocodone/Acetaminophen 5-325 mg) 1 Tab Tab, 1 TAB PO Q6HPRN PRN, #20 TAB Prov:ADALBERTO JOHNSON DO 11/25/24 Reported Medications Vit W/ Ferrous Fumara ( One Daily) Daily Tab, 1 TAB PO DAILY, #90 TAB 3 Refills 05/21/25 Family & Social History Family/Social History Blood Type: Unknown Rubella: unknown RPR/VDRL: Unknown GBS Status: Unknown HBsAG: Unknown Review of Systems Constitutional: No symptom reported Ears, Nose, & Throat: No symptom reported Eyes: No symptom reported Pulmonary/Respiratory: No symptom reported Cardiovascular: No symptom reported Gastrointestinal: No symptom reported Genitourinary: No symptom reported Musculoskeletal: No symptom reported Skin: No symptom reported Psychiatric: No symptom reported Endocrine: No symptom reported Hemotologic/Lymphatic: No symptom reported OB Admission Exam Physical Exam HEENT: TMs Normal, Fontanelles Normal, Nasal Mucosa Normal, Eyes non-injected, Oropharynx Normal, PERRLA, Moist Membranes, EOMI Heart: Rhythm Normal Lungs: Clear Abdomen: Non tender Extremities: Normal Reflexes: Normal Cervical Dilatation: 3cm Effacement: 75% Station: -2 Membranes: Intact Heart Rate: 130's Accelerations: Accelerations Present Decelerations: No Decelerations Short Term Variability: Present Resident Assistant Variability: Average (6-25) Contractions on Admission: < 5 Minutes Apart Intensity: Moderate OB Plan Plan Admitting Diagnosis: iup at 39wks in labor unknown care Plan: Expectant Management Other Plan: informed consent obtained,pt wants to deliver at [facility] Visit Coding OBGYN Date of Service: Sep 03, 2025 Billing Provider: JIGNESH MCKINLEY DO CURED MEATS SUPERVISOR Common Visit Codes: [id number] INP/OBS CARE (HIGH) CURED MEATS SUPERVISOR Procedure Codes: 05566-17- NON-STRESS TEST JIGNESH MCKINLEY DO Sep 03, 2025 08:34
[2025-09-03] MEDS ORDERED: BUTORPHANOL TARTRATE 2 MG/1 ML VIAL IV PRN ×2 (08:45)
[2025-09-03] MEDS ORDERED: TERBUTALINE SULFATE 1 MG/ML 1ML VIAL SC PRN (08:45)
[2025-09-03] MEDS ORDERED: LIDOCAINE 2%HCL (LOCAL ANESTH.) INJ 20ML MDV IJ PRN (08:45)
[2025-09-03] MEDS ORDERED: LACTATED RINGER'S 1,000 ML IV SCH (08:45)
[2025-09-03] MEDS ORDERED: PHISODERM TOP SOLN 240ML BTL TOP PRN (08:45)
[2025-09-03] MEDS ORDERED: NALBUPHINE HCL 10 MG/1ml INJECTION IV PRN (08:45)
[2025-09-03] MEDS ORDERED: DERMOPLAST 60ML BOTTLE TOP PRN (08:45)
[2025-09-03] MEDS ORDERED: PENICILLIN G POT 5MIL/D5 50ML 50 ML IV ONE (08:45)
[2025-09-03] MEDS ORDERED: WITCH HAZEL-GLYCERIN PAD TOP PRN (08:45)
[2025-09-03 09:30] LABS: Hematocrit 39.7 % (36.0-46.0); Hemoglobin 13.3 g/dL (12.2-16.2); Mean Corpuscular Hemoglobin 30.5 pg (28.0-32.0); Mean Corpuscular Volume 90.9 fL (80.0-100.0); Nucleated Red Blood Cells % 0.1 %
[2025-09-03] MEDS ORDERED: Lidocaine W-Epinephrine 1.5%-1:200,000 INJ 10ml Vial IJ ONE (09:30)
[2025-09-03] MEDS ORDERED: fentaNYL 400mCg/200ml W ROPIVA 200 ML EPI SCH (09:30)
[2025-09-03] MEDS ORDERED: NALOXONE HCL 0.4 MG/ML VIAL IV ONE (09:30)
[2025-09-03] MEDS ORDERED: SODIUM CHLORIDE 0.9% 500 ML IV PRN (09:30)
[2025-09-03 09:45] LABS: INR 0.94 (0.9-1.15); Partial Thromboplastin Time 28.3 SEC (24.5-34.5); Prothrombin Time 10.0 sec (9.3-11.8)
[2025-09-03 09:48] LABS: Alanine Aminotransferase 13 U/L (7-40); Albumin 3.7 g/dL (3.2-4.8); Anion Gap 13 (5-15); BUN/Creatinine Ratio 9.2 (10.0-20.0); Calcium 9.3 mg/dL (8.7-10.4); Glucose 80 mg/dL (74-106); Potassium 3.8 mmol/L (3.5-5.1); Sodium 139 mmol/L (136-145); Total Protein 6.3 g/dL (5.7-8.2)
[2025-09-03 09:49] LABS: Alkaline Phosphatase 165 U/L (46-116); Bilirubin, Total 0.8 mg/dL (0.2-1.0); Blood Urea Nitrogen 6 mg/dL (9-23); Carbon Dioxide 19 mmol/L (20-31); Chloride 107 mmol/L (98-107)
[2025-09-03] MEDS: ROPIVACAINE HCL 100 ML ONE ×3 (09:50→17:09)
[2025-09-03] MEDS: fentaNYL CITRATE 100 MCG/2 ML VL IV ONE (10:02)
--- NOTE | 2025-09-03 10:34 | EPIDURAL ---
Anesthesia Procedural Note - Epidural Informed consent obtained?: Yes Spinal level of insertion: L4-L5 Test dose of lidocaine & Epine: Negative Infusion started: Yes Start time: 09:45 End time: 10:15 Procedure description Procedure description: Called for labor analgesia. Chart reviewed, history taken and patient examined. Patient is at term in labor, requesting epidural. Informed consent for CSE obtained at 0945 (BP 120/67 HR 75 spO2 98). Sitting position, sterile prep and drape. Time out done. L4-5 space infiltrated with 1% lido. Epidural needle placed with ALEXANDRE at 6cm. 25G spinal needle +clear CSF at 0952 (BP 122/72 HR 70 spO2 98). 15mcg fentanyl given IT at 0953. Epidural catheter secured at 12cm at 0956. Aspiration and test dose (3cc 1.5% lido with epi) negative at 0958 (BP 127/66 HR 76 spO2 99). 85mcg fentanyl given via epidural at 1000 (BP) 120/61 HR 80 spO2 99). Patient reports pain relief. 0.2% ropivacaine infusion started at 1010 (BP 110/57 HR 77 spO2 99). Will follow as needed. MICHELLE WEINBERG MD Sep 03, 2025 10:34
[2025-09-03] MEDS ORDERED: PENICILLIN G POTASSIUM 2,500,000 UNITS in D5W 5% 50 ML IV SCH (12:45)
[2025-09-03] MEDS ORDERED: ONDANSETRON HCL 4 MG/2 ML VIAL IV ONE (14:45)
[2025-09-03] MEDS: ONDANSETRON HCL 4 MG/2 ML VIAL ONE (15:01)
[2025-09-03] MEDS ORDERED: ONDANSETRON ODT 4 MG TAB PO PRN (20:45)
--- NOTE | 2025-09-03 20:51 | LDN2 ---
Labor and Delivery Note Date 09/03/25 Age 29 1 Para 0->1 EDC 09/06/2025 EGA 39w4d Diagnosis Vaginal Delivery: VTX Vacuum Assisted: No Placenta: Spontaneous (kasey) Sex: Female Apgars 8/9 Nuchal Cord Transected: No Amniotic Fluid: Meconium Stained Anesthesia epidural Episiotomy: No Extension: No (L vaginal laceration) Repaired with 3-[address]-1 EBL 200mL in drape Labs Blood Bank 09/03/25 09:05: Blood Type O POSITIVE Comments/Significant Med Marli At 1849 this 29yo now delivered a viable Female by w/ APGARS 8/9. ALEXANDER. Infant placed skin to skin on pts abdomen r/t cord length. Cord clamped and cut by FOB after pulsation ceased. Cord blood sent. Intact 3-vessel cord and intact placenta (Kasey), delivered spontaneously. Pitocin IV bolus started. Placenta to be taken home by patient for encapsulation. Patient had epidural and pain was well managed. Cervix inspected and intact. Perineum intact. L vaginal laceration noted and repaired with 3-0 vicryl suture in the usual fashion. Rectal mucosa and sphincter intact. Fundus at U, firm, midline, and light lochia. EBL 200ml in drape. VSS. Count correct x2. Patient to care and baby to couplet care, both stable. Visit Coding OBGYN Date of Service: Sep 03, 2025 Billing Provider: AMBROSE DAVE CNM SPARE PERSON Common Visit Codes: [id number] INP/OBS CARE(HIGH) SPARE PERSON Procedure Codes: [id number] DEL INCLUDING AMBROSE DAVE CNM Sep 03, 2025 20:51
[2025-09-03] MEDS ORDERED: IBUPROFEN 600 MG TAB PO SCH (21:00)
[2025-09-03 21:16] LABS: Urine Protein, UAD Negative (Negative)
[2025-09-03] MEDS: IBUPROFEN 800 MG TAB PO PRN (21:17)
[2025-09-03 21:30] LABS: Amphetamine Screen, Urine Neg (NEGATIVE); Barbiturate Scree,Urine Neg (NEGATIVE); Benzodiazephine Screen, Urine Neg (NEGATIVE); Cannabinoid Screen, Urine Neg (NEGATIVE); Cocaine Screen, Urine Neg (NEGATIVE); Opiate Scree,Urine Neg (NEGATIVE); Phencyclidine Screen, Urine Neg (NEGATIVE)
[2025-09-03] MEDS: LACT. RINGERS/OXYTOCIN 20UNITS 500 ML IV ONE ×2 (21:56→21:57)
[2025-09-03] MEDS ORDERED: DOCUSATE SOD 100 MG CAP PO SCH (22:00)
[2025-09-03] MEDS ORDERED: ACETAMINOPHEN 325 MG TAB PO SCH (22:00)
[2025-09-03] MEDS: DOCUSATE SOD 100 MG CAP PO SCH (22:24)
[2025-09-03] MEDS: ACETAMINOPHEN 325 MG TAB PO PRN (22:55)
[2025-09-03 22:58] VITALS: BP 116/59; PULSE 77; RESP 18; TEMP 98.6; O2SAT 98
[2025-09-04 03:07] VITALS: BP 112/65; PULSE 67; RESP 17; TEMP 98; O2SAT 97
[2025-09-04 06:35] VITALS: BP 108/57; PULSE 65; RESP 18; TEMP 98; O2SAT 96
--- NOTE | 2025-09-04 06:50 | DVHPN2 ---
Progress Note Date Seen: Sep 04, 2025 Subjective Genny is sitting up in bed burping the baby with her partner attentive at bedside. Patient was able to sleep off and on through the night and is excited to go home. SUBJECTIVE -Lochia minimal -Tolerating regular diet well. -Pain relieved with oral medication PRN -Ambulating and voiding well w/o feeling lightheaded or dizzy. -Passing flatus but no BM yet -Breast feeding. -Desires and requests to be discharged home today (09/04) vital signs Vital Sign Date Time Temp Pulse Resp B/P (MAP) Pulse Ox O2 Delivery O2 Flow Rate FiO2 09/04/25 06:35 98.0 65 18 108/57 (74) 96 98.0 09/03/25 21:30 Room Air Total Intake and Output 09/03/25 09/03/25 09/04/25 15:00 23:00 07:00 Output Total 200 ml 300 ml Balance -200 ml -300 ml medications Current Medications Medications Dose Ordered Sig/Deisy Route Start Time Stop Time Status Last Admin Dose Admin Lactated Ringer's 1,000 ml @ 125 mls/hr Q8H IV 09/03/25 08:45 Witch Radha 1 pad PRN PRN TOP 09/03/25 08:45 Sodium Lauryl Sulfate 240 ml PRN PRN TOP 09/03/25 08:45 Benzocaine 1 applic PRN PRN TOP 09/03/25 08:45 Ondansetron HCl 4 mg Q4HPRN PRN PO 09/03/25 20:45 Ibuprofen 600 mg Q6HP PRN PO 09/04/25 20:45 Acetaminophen 650 mg Q4HP PRN PO 09/03/25 20:45 09/04/25 06:44 650 MG Docusate Sodium 200 mg HS PO 09/03/25 22:00 09/03/25 22:24 200 MG Ibuprofen 800 mg ONCE PRN PO 09/03/25 21:15 09/04/25 11:15 09/03/25 21:17 800 MG laboratory and microbiology Laboratory Tests 09/03/25 09:05 Test 09/03/25 09:05 Range/Units Serum Glucose 80 74-106 mg/dL Objective OBJECTIVE -A&O x4. No apparent distress. Affect appropriate -Afebrile, VSS -Chest: heart and lung sounds normal. -Breasts: Nipples intact w/o cracks or soreness -Abdomen: normal BS, soft, non-tender, no rebound or guarding, fundus firm @ U- 1, lochia minimal -Perineum: no edema, or erythema -Extremities: no edema or tenderness Problems(with codes): (1) (normal spontaneous vaginal delivery) Assessment/Plan ASSESSMENT -29 yo now ppd #1 s/p doing well. -Blood Type: O+ -Breast feeding -Rubella Immune PLAN -Continue pain management with oral medications as previously ordered. Patient aware of discharge medications ordered to preferred pharmacy -Increase fluid intake and fiber in diet to promote regular bowel movements, Laxative PRN -Encouraged patient to continue taking vitamin and iron -Educated patient on self care and warning signs of PPH, PPD, and pre-eclampsia. Answered all pt questions and concerns -Continue routine care and anticipate discharge today, pending baby discharge Plan discussed with: Patient, Spouse Visit Coding OBGYN Date of Service: Sep 04, 2025 Billing Provider: AMBROSE DAVE CNM MARKETING AUTOMATION SPECIALIST Common Visit Codes: [id number] INP/OBS CARE(MOD) AMBROSE DAVE CNM Sep 04, 2025 06:50
--- NOTE | 2025-09-04 06:51 | DVHDS2 ---
Obstetrics Discharge Summary Obstetrics Discharge Summary Date of Admission: Sep 03, 2025 Date of Discharge: Sep 04, 2025 Reason For Admission: Onset of Labor Intrapartum Procedures: Spontaneous vaginal deliv Operative Complicat: Vaginal Laceration Discharge Diagnosis: Term -Delivered Discharge Information: Activity (Unrestricted. Advance as tolerated. Balance activities with rest periods. No heavy lifting, pushing or straining. Pelvic re st x 6 weeks), Diet (Routine regular diet rich in fiber, protein, iron and vitamin C with adequate fluid intake.), Medications (Ibuprofen 600mg every 6 hours as needed for pain. Colace 100mg twice a day as needed to keep bowel movements soft and prevent constipation. Continue Vitamin and iron), Instructions (Routine), Discharge to (Home), Accompanied by (partner), Discarge date (09/04/2025) Discharge Care Plan Instructions - self care instructions given - emergency signs and symptoms including but not limited to pre-eclampsia precautions and signs of infection, PPH & of PPD reviewed with patient. -Follow up with OB Provider in 2 weeks and again at 6 weeks Visit Coding OBGYN Date of Service: Sep 04, 2025 Billing Provider: AMBROSE DAVE CNM [employer] Common Visit Codes: 49422-WIN/OBS DISCH DAY <30MIN AMBROSE DAVE CNM Sep 04, 2025 06:51
[2025-09-04] MEDS ORDERED: IBU600T PO ×2 (06:53)
[2025-09-04] MEDS ORDERED: DOCU-94 PO ×2 (06:53)
[2025-09-04 11:11] VITALS: BP 110/62; PULSE 66; RESP 18; TEMP 98.2; O2SAT 97
[2025-09-04] MEDS: IBUPROFEN 600 MG TAB PO PRN (11:28)
[2025-09-04 15:00] VITALS: BP 112/57; PULSE 59; RESP 18; TEMP 97.8; O2SAT 97
[2025-09-04 19:00] VITALS: BP 110/53; PULSE 64; RESP 20; TEMP 98.2; O2SAT 99
[2025-09-04] MEDS ORDERED: IBUPROFEN 600 MG TAB PO PRN (20:45)
== END 2025-09-04 20:24 | disposition home or self-care (01) | DRG 560 ==
LOC: LDRP 08:25 → OBSVTOIN 08:30
PROVIDERS: ADMIT Obstetrics & Gynecology; ATTEND Obstetrics & Gynecology
PROC: 10E0XZZ Delivery of Products of Conception, External Approach (ICD-10-PCS; principal; 2025-09-03)
PROC: 0UQGXZZ Repair Vagina, External Approach (ICD-10-PCS; 2025-09-03)
PROC: 3E0R3BZ Introduction of Anesthetic Agent into Spinal Canal, Percutaneous Approach (ICD-10-PCS; 2025-09-03)
PROC: 00HU33Z Insertion of Infusion Device into Spinal Canal, Percutaneous Approach (ICD-10-PCS; 2025-09-03)
DX: O77.0 Labor and delivery complicated by meconium in amniotic fluid (principal); Z37.0 Single live birth; O71.4 Obstetric high vaginal laceration alone; Z3A.39 39 weeks gestation of pregnancy
CPT/HCPCS: 36415; 59025; 59409; 62282; 80053; 80307; 81001; 85025; 85610; 85730; 86780; 86803; 86850; 86900; 86901; 94760; 96360; 96361; 96365; 96366; 96374; G0378; J2405; J2540; J2590; J7060